=== PATIENT | male | born 1950 | race Caucasian/White ===

== ENCOUNTER → 2017-07-24 | Outpatient (CLI) | payer MEDICARE, OTHER ==
[2017-07-24 14:46] LABS: Basophils # (auto) 0.1 uL; Eosinophils # (auto) 0.7 uL; Eosinophils % (auto) 8.2 % (0.0-7.0); Hematocrit 42.7 % (41.0-53.0); Hemoglobin 14.2 g/dL (13.5-17.5); Lymphocytes # (auto) 1.9 uL; Lymphocytes % (auto) 22.9 % (10.0-50.0); Mean Corpuscular Hemoglobin 30.7 pg (28.0-32.0); Mean Corpuscular Hgb Conc. 33.3 g/dL (32.0-36.0); Mean Corpuscular Volume 92.3 fL (80.0-100.0); Monocytes # (auto) 0.5 uL; Monocytes % (auto) 5.6 % (0.0-12.0); Neutrophils # (auto) 5.1 uL; Neutrophils % (auto) 62.3 % (37.0-80.0); Platelet Count (auto) 209 10^3/uL (140-450); Red Blood Cells 4.63 10^6/uL (4.5-5.90); Red Cell Distribution Width 13.9 % (11.8-14.3); White Blood Cell 8.2 10^3/uL (4.4-10.8)
[2017-07-24 14:48] LABS: Urine Bacteria NONE SEEN /hpf (None Seen); Urine Blood Negative /uL (Negative); Urine Specific Gravity 1.018 (1.001-1.035); Urine WBC <1 /hpf (0 - 3)
[2017-07-24 15:01] LABS: INR 0.88 (0.9-1.15); Partial Thromboplastin Time 25.9 sec (22.64-33.71); Prothrombin Time 9.6 sec (9.37-12.3)
[2017-07-24 15:21] LABS: BUN/Creatinine Ratio 24.5; Bilirubin, Total 0.3 mg/dL (0.2-1.0); Calcium 9.6 mg/dL (8.5-10.1); Total Protein 7.8 g/dL (6.4-8.2)
== END | disposition home or self-care (01) ==
LOC: LAB 13:40
PROVIDERS: ATTEND Orthopaedic Surgery
DX: S83.102D Unspecified subluxation of left knee, subsequent encounter (principal); Z79.01 Long term (current) use of anticoagulants
CPT/HCPCS: 36415; 80053; 81001; 85025; 85610; 85730

== ENCOUNTER → 2018-11-11 | Outpatient (CLI) | payer MEDICARE, OTHER ==
[~2018-11-11] VITALS: Ht 182.9 cm; Wt 94.8 kg
[~2018-11-11] MED LIST: ADENOSINE 80 MG in GIVE UN-DILUTED 0 ML IV STA; APIX5TAB PO; COLE1TAB2 PO; DIGO0.2527 PO; LISI-646 PO; MET5XLT PO; PANT40T PO
[2018-11-11 10:05] VITALS: BP 136/78
== END | disposition home or self-care (01) ==
LOC: XYW 09:12
PROVIDERS: ATTEND Internal Medicine
DX: I10 Essential (primary) hypertension (principal); I49.8 Other specified cardiac arrhythmias; G43.909 Migraine, unspecified, not intractable, without status migrainosus; Z86.711 Personal history of pulmonary embolism; Z87.898 Personal history of other specified conditions
CPT/HCPCS: 78452; 93017; A9500; J0153

== ENCOUNTER → 2018-11-14 | Outpatient (CLI) | payer MEDICARE, OTHER ==
[~2018-11-14] MED LIST changes: -ADENOSINE 80 MG in GIVE UN-DILUTED 0 ML IV STA; +AMI200T PO; +BUTACAP35 PO; +DIGO0.2570 PO; +METO-169 PO
[2018-11-14 11:05] LABS: Albumin 3.8 g/dL (3.4-5.0); Calcium 8.8 mg/dL (8.5-10.1); Potassium 4.4 mmol/L (3.5-5.1)
[2018-11-14 11:08] LABS: BUN/Creatinine Ratio 15.5; Bilirubin, Total 0.3 mg/dL (0.2-1.0); Total Protein 7.6 g/dL (6.4-8.2)
[2018-11-14 11:09] LABS: Basophils # (auto) 0.1 uL; Basophils % (auto) 1.3 % (0.0-2.0); Eosinophils # (auto) 0.2 uL; Eosinophils % (auto) 3.3 % (0.0-7.0); Hematocrit 42.9 % (41.0-53.0); Hemoglobin 14.3 g/dL (13.5-17.5); Lymphocytes # (auto) 1.4 uL; Lymphocytes % (auto) 19.7 % (10.0-50.0); Mean Corpuscular Hemoglobin 30.8 pg (28.0-32.0); Mean Corpuscular Hgb Conc. 33.4 g/dL (32.0-36.0); Mean Corpuscular Volume 92.3 fL (80.0-100.0); Monocytes # (auto) 0.5 uL; Monocytes % (auto) 6.5 % (0.0-12.0); Neutrophils % (auto) 69.2 % (37.0-80.0); Nucleated Red Blood Cells % 0.1 %; Platelet Count (auto) 211 10^3/uL (140-450); Red Blood Cells 4.65 10^6/uL (4.5-5.90); Red Cell Distribution Width 15.1 % (11.8-14.3); White Blood Cell 7.2 10^3/uL (4.4-10.8)
[2018-11-14 11:39] LABS: INR 0.89 (0.9-1.15); Partial Thromboplastin Time 27.2 sec (23.64-32.05)
== END | disposition home or self-care (01) ==
LOC: LAB 10:19
PROVIDERS: ATTEND Internal Medicine
DX: Z01.812 Encounter for preprocedural laboratory examination (principal); R79.89 Other specified abnormal findings of blood chemistry; R79.1 Abnormal coagulation profile
CPT/HCPCS: 36415; 80053; 85025; 85610; 85730

== ENCOUNTER 2018-11-17 08:07 | Day surgery (SDC) | payer MEDICARE, OTHER ==
[~2018-11-17] VITALS: Ht 175.3 cm; Wt 95.7 kg
[~2018-11-17 08:07] MED LIST changes: -DIGO0.2527 PO; -MET5XLT PO
[2018-11-17] MEDS ORDERED: fentaNYL CITRATE 100 MCG/2 ML VL IV ONE (08:45)
[2018-11-17] MEDS ORDERED: LIDOCAINE VISCOUS 2% 15ML UD PO ONE (08:45)
[2018-11-17] MEDS ORDERED: MIDAZOLAM HCL 1MG/1ML-2 ML VIAL IV ONE (08:45)
[2018-11-17] MEDS ORDERED: ONDANSETRON HCL 4 MG/2 ML VIAL ONE (09:51)
--- NOTE | 2018-11-17 13:47 | NUR ---
critical lab for digoxin 2.1 called in to MD Leonardo.
== END 2018-11-17 11:40 | disposition home or self-care (01) ==
LOC: CATH 08:07
PROVIDERS: ATTEND Internal Medicine
DX: I48.91 Unspecified atrial fibrillation (principal); I10 Essential (primary) hypertension; G43.909 Migraine, unspecified, not intractable, without status migrainosus; J45.909 Unspecified asthma, uncomplicated; G47.33 Obstructive sleep apnea (adult) (pediatric); Z79.899 Other long term (current) drug therapy; Z88.0 Allergy status to penicillin; Z86.711 Personal history of pulmonary embolism; Z87.898 Personal history of other specified conditions; Z82.49 Family history of ischemic heart disease and other diseases of the circulatory system
CPT/HCPCS: 36415; 80162; 92960; 93005; 93312; J2250; J2405; J3010; J7030; 99152

== ENCOUNTER → 2019-07-07 | Outpatient (CLI) | payer MEDICARE, OTHER ==
[~2019-07-07] VITALS: Ht 175.3 cm; Wt 95.7 kg
[~2019-07-07] MED LIST changes: +ADENOSINE 80 MG in GIVE UN-DILUTED 0 ML IV STA; -AMI200T PO; +AMIO200T4 PO; +DIGO0.25 PO; -DIGO0.2570 PO
[2019-07-07 08:46] VITALS: BP 149/92
== END | disposition home or self-care (01) ==
LOC: XY 06:57
PROVIDERS: ATTEND Internal Medicine
DX: I10 Essential (primary) hypertension (principal); I48.91 Unspecified atrial fibrillation
CPT/HCPCS: 78452; 93017; A9500; J0153

== ENCOUNTER → 2019-07-10 | Outpatient (CLI) | payer MEDICARE, OTHER ==
[~2019-07-10] MED LIST changes: -ADENOSINE 80 MG in GIVE UN-DILUTED 0 ML IV STA
== END | disposition home or self-care (01) ==
LOC: XYW 10:28
PROVIDERS: ATTEND Internal Medicine
DX: I11.9 Hypertensive heart disease without heart failure (principal)
CPT/HCPCS: 93306

== ENCOUNTER → 2019-08-10 | Outpatient (CLI) | payer MEDICARE, OTHER ==
[2019-08-10 13:41] LABS: Basophils # (auto) 0.1 10 ^3/uL (0-0.2); Basophils % (auto) 1.4 % (0.0-2.0); Eosinophils # (auto) 0.5 10 ^3/uL (0-0.8); Eosinophils % (auto) 6.6 % (0.0-7.0); Hematocrit 41.2 % (41.0-53.0); Hemoglobin 13.6 g/dL (13.5-17.5); Lymphocytes # (auto) 2.4 10 ^3/uL (0.4-5.4); Lymphocytes % (auto) 32.2 % (10.0-50.0); Mean Corpuscular Hemoglobin 30.6 pg (28.0-32.0); Mean Corpuscular Hgb Conc. 32.9 g/dL (32.0-36.0); Mean Corpuscular Volume 92.9 fL (80.0-100.0); Monocytes # (auto) 0.6 10 ^3/uL (0-1.3); Monocytes % (auto) 8.2 % (0.0-12.0); Neutrophils # (auto) 3.8 10 ^3/uL (1.6-8.6); Neutrophils % (auto) 51.6 % (37.0-80.0); Platelet Count (auto) 187 10^3/uL (140-450); Red Blood Cells 4.44 10^6/uL (4.5-5.90); Red Cell Distribution Width 14.8 % (11.8-14.3); White Blood Cell 7.4 10^3/uL (4.4-10.8)
[2019-08-10 14:20] LABS: Albumin 3.7 g/dL (3.4-5.0); Potassium 4.2 mmol/L (3.5-5.1)
[2019-08-10 14:26] LABS: BUN/Creatinine Ratio 19.6; Bilirubin, Total 0.4 mg/dL (0.2-1.0); Total Protein 7.5 g/dL (6.4-8.2)
== END | disposition home or self-care (01) ==
LOC: LAB 13:21
PROVIDERS: ATTEND Internal Medicine
DX: I10 Essential (primary) hypertension (principal); Z87.898 Personal history of other specified conditions
CPT/HCPCS: 36415; 80053; 80061; 85025

== ENCOUNTER 2019-11-11 07:50 | Inpatient (IN) | payer MEDICARE, OTHER ==
[2019-11-09 11:06] LABS: Basophils # (auto) 0.1 10 ^3/uL (0-0.2); Basophils % (auto) 1.1 % (0.0-2.0); Eosinophils # (auto) 0.6 10 ^3/uL (0-0.8); Eosinophils % (auto) 7.6 % (0.0-7.0); Hematocrit 37.4 % (41.0-53.0); Hemoglobin 12.3 g/dL (13.5-17.5); Lymphocytes # (auto) 1.9 10 ^3/uL (0.4-5.4); Lymphocytes % (auto) 25.1 % (10.0-50.0); Mean Corpuscular Hemoglobin 30.1 pg (28.0-32.0); Mean Corpuscular Hgb Conc. 32.9 g/dL (32.0-36.0); Mean Corpuscular Volume 91.3 fL (80.0-100.0); Monocytes # (auto) 0.4 10 ^3/uL (0-1.3); Neutrophils # (auto) 4.5 10 ^3/uL (1.6-8.6); Neutrophils % (auto) 60.2 % (37.0-80.0); Platelet Count (auto) 202 10^3/uL (140-450); Red Blood Cells 4.09 10^6/uL (4.5-5.90); Red Cell Distribution Width 14.9 % (11.8-14.3); White Blood Cell 7.5 10^3/uL (4.4-10.8)
[2019-11-09 11:22] LABS: INR 0.97 (0.9-1.15); Partial Thromboplastin Time 26.2 sec (23.64-32.05)
[2019-11-09 11:33] LABS: Potassium 4.5 mmol/L (3.5-5.1)
[2019-11-09 11:39] LABS: Albumin 3.5 g/dL (3.4-5.0); BUN/Creatinine Ratio 13.8; Bilirubin, Total 0.4 mg/dL (0.2-1.0); Calcium 8.9 mg/dL (8.5-10.1); Total Protein 7.3 g/dL (6.4-8.2)
[~2019-11-11] VITALS: Ht 175.3 cm; Wt 89.5 kg
[~2019-11-11 07:50] MED LIST changes: -AMIO200T4 PO; -BUTACAP35 PO; -DIGO0.25 PO; +HYDR-531 PO; -LISI-646 PO; +LOSA-39 PO; +ROSU40TA PO; +[UNRECOGNIZED DRUG - CODE] PO
[2019-11-11] MEDS ORDERED: LIDOCAINE 2%HCL (LOCAL ANESTH.) INJ 20ML MDV ONE (08:10)
[2019-11-11] MEDS ORDERED: IODIXANOL 320MG/ML 100ML BTL IV ONE ×3 (08:11→10:25)
[2019-11-11] MEDS ORDERED: SODIUM CHL 0.9% 50 ML ONE ×3 (09:22→10:43)
[2019-11-11] MEDS ORDERED: fentaNYL CITRATE 100 MCG/2 ML VL ONE (09:22)
[2019-11-11] MEDS ORDERED: MIDAZOLAM HCL 1MG/1ML-2 ML VIAL ONE ×2 (09:22→10:44)
[2019-11-11] MEDS ORDERED: ANGIOMAX 250 MG VIAL IV ONE ×2 (09:22→10:39)
[2019-11-11] MEDS ORDERED: diphenhdrAMINE HCL 50 MG/1 ML VL ONE (09:41)
[2019-11-11] MEDS ORDERED: IOHEXOL 350 MG/ML 100ML IJ ONE ×2 (10:29→11:05)
[2019-11-11] MEDS ORDERED: PRASUGREL HCL 10 MG TAB ONE ×2 (11:25→11:35)
[2019-11-11] MEDS ORDERED: ASPirin 325 MG TAB ONE (11:25)
[2019-11-11] MEDS ORDERED: SODIUM CHLORIDE 0.9% 1,000 ML IV SCH (13:02)
[2019-11-11] MEDS ORDERED: NITROGLYCERIN 0.4 MG SL TAB SL PRN (13:15)
[2019-11-11] MEDS ORDERED: MORPHINE SULF INJ 2 MG/ML SYRINGE 1ML IV PRN (13:15)
[2019-11-11] MEDS ORDERED: ACETAMINOPHEN 500 MG TAB PO PRN (13:15)
[2019-11-11] MEDS ORDERED: ONDANSETRON HCL 4 MG/2 ML VIAL IV PRN (13:15)
[2019-11-11] MEDS ORDERED: ZOLPIDEM TARTRATE 5 MG TAB PO PRN (13:15)
[2019-11-11] MEDS ORDERED: HYDROcodone-ACET 5/325MG TAB PO PRN (13:15)
[2019-11-11] MEDS ORDERED: LORazepam 0.5 MG TAB PO PRN (13:15)
[2019-11-11 17:00] VITALS: BP 138/81
[2019-11-11 22:00] VITALS: BP 135/82
[2019-11-12 05:00] VITALS: BP 130/79
[2019-11-12 08:30] VITALS: BP 159/89
[2019-11-12] MEDS ORDERED: LOSARTAN POTASSIUM 50 MG TAB PO SCH (10:00)
[2019-11-12] MEDS ORDERED: METOPROLOL SUCCINATE XL 50 MG TAB PO SCH (10:00)
[2019-11-12] MEDS ORDERED: PRASUGREL HCL 10 MG TAB PO SCH (10:00)
[2019-11-12] MEDS ORDERED: COLESTIPOL HCL 1 GM PO SCH (10:00)
[2019-11-12] MEDS ORDERED: ATORVASTATIN 20 MG TAB PO SCH (10:00)
[2019-11-12] MEDS ORDERED: PANTOPRAZOLE 40 MG TAB PO SCH (10:00)
[2019-11-12] MEDS ORDERED: ASPIRIN CAFFEINE PO SCH (10:00)
[2019-11-12 14:00] VITALS: BP 136/86
[2019-11-12 14:31] VITALS: BP 136/86
== END 2019-11-12 15:05 | disposition home or self-care (01) | DRG 246 ==
LOC: CATH 07:50 → TELE-WESTW 15:23
PROVIDERS: ADMIT Internal Medicine; ATTEND Internal Medicine
PROC: 027236Z Dilation of Coronary Artery, Three Arteries with Three Drug-eluting Intraluminal Devices, Percutaneous Approach (ICD-10-PCS; principal; 2019-11-11)
PROC: 4A023N8 Measurement of Cardiac Sampling and Pressure, Bilateral, Percutaneous Approach (ICD-10-PCS; 2019-11-11)
PROC: B211YZZ Fluoroscopy of Multiple Coronary Arteries using Other Contrast (ICD-10-PCS; 2019-11-11)
PROC: B215YZZ Fluoroscopy of Left Heart using Other Contrast (ICD-10-PCS; 2019-11-11)
PROC: B241ZZ3 Ultrasonography of Multiple Coronary Arteries, Intravascular (ICD-10-PCS; 2019-11-11)
DX: I25.10 Atherosclerotic heart disease of native coronary artery without angina pectoris (principal); I25.42 Coronary artery dissection; I10 Essential (primary) hypertension; E78.5 Hyperlipidemia, unspecified; I48.91 Unspecified atrial fibrillation; J45.909 Unspecified asthma, uncomplicated; Z86.711 Personal history of pulmonary embolism; Z88.1 Allergy status to other antibiotic agents; Z88.0 Allergy status to penicillin; Z11.59 Encounter for screening for other viral diseases
CPT/HCPCS: 36415; 80053; 82565; 85025; 85610; 85730; 92928; 92978; 92979; 93460; 99152; 99153; C1751; C1874; C1887; G0378; J2250; Q9967

== ENCOUNTER → 2020-04-21 | Outpatient (CLI) | payer MEDICARE, BC ==
[~2020-04-21] VITALS: Ht 175.3 cm; Wt 93.9 kg
[~2020-04-21] MED LIST changes: +ADENOSINE 79 MG in GIVE UN-DILUTED 0 ML IV STA
== END | disposition home or self-care (01) ==
LOC: XY 07:44
PROVIDERS: ATTEND Internal Medicine
DX: I25.10 Atherosclerotic heart disease of native coronary artery without angina pectoris (principal); R06.02 Shortness of breath; M17.10 Unilateral primary osteoarthritis, unspecified knee; Z95.9 Presence of cardiac and vascular implant and graft, unspecified
CPT/HCPCS: 78452; 93017; A9500; J0153

== ENCOUNTER 2024-07-03 14:58 | Inpatient (IN) | payer MEDICARE, BC ==
[~2024-07-03] VITALS: Ht 175.3 cm; Wt 103.7 kg
[2024-07-03] MEDS: POTASSIUM CHL 20MEQ/100ML 100 ML IV SCH (03:30)
[~2024-07-03 14:58] MED LIST changes: -ADENOSINE 79 MG in GIVE UN-DILUTED 0 ML IV STA; -LOSA-39 PO; +LOSA-535 PO; -METO-169 PO; +METO-289 PO; -ROSU40TA PO; +ROSU40TA81 PO; +[UNRECOGNIZED DRUG - CODE] PO; -[UNRECOGNIZED DRUG - CODE] PO
[2024-07-03 15:55] LABS: Urine Bacteria None Seen /hpf (None Seen)
[2024-07-03 16:08] LABS: Urine Blood Negative /uL (Negative); Urine Clarity Clear (Clear); Urine Color Dark-Yellow (Yellow); Urine Protein, UAD Negative (Negative); Urine Specific Gravity 1.011 (1.001-1.035); Urine Squamous Epithelial Cell FEW /hpf (<5); Urine Urobilinogen 3 mg/dL (Negative); Urine WBC 2 /HPF (0-3); Urine pH 5.5 (5.0-9.0)
[2024-07-03 16:34] LABS: Basophils # (auto) 0.1 10 ^3/uL (0-0.2); Basophils % (auto) 0.8 % (0.0-2.0); Eosinophils # (auto) 0.5 10 ^3/uL (0-0.8); Hematocrit 38.7 % (41.0-53.0); Lymphocytes # (auto) 1.1 10 ^3/uL (0.4-5.4); Lymphocytes % (auto) 11.4 % (10.0-50.0); Mean Corpuscular Hgb Conc. 33.8 g/dL (32.0-36.0); Mean Corpuscular Volume 85.8 fL (80.0-100.0); Monocytes # (auto) 0.9 10 ^3/uL (0-1.3); Monocytes % (auto) 9.2 % (0.0-12.0); Neutrophils # (auto) 7.1 10 ^3/uL (1.6-8.6); Neutrophils % (auto) 73.6 % (37.0-80.0); Nucleated Red Blood Cells % 0.1 %; Platelet Count (auto) 299 10^3/uL (140-450); Red Blood Cells 4.51 10^6/uL (4.5-5.90); Red Cell Distribution Width 14.1 % (11.8-14.3); White Blood Cell 9.6 10^3/uL (4.4-10.8)
--- NOTE | 2024-07-03 16:40 | DVH ---
CT ABDOMEN AND PELVIS WITHOUT CONTRAST CLINICAL HISTORY: pain TECHNIQUE: Multiple contiguous axial images of the abdomen and pelvis without intravenous contrast. The images were reformatted degenerate coronal and sagittal reconstructions. All CT scans at this medical facility are performed using dose modulation techniques as appropriate t o a performed exam including the following:Automated exposure control was utilized; adjustment of the MA and/or KV according to patient size; and use of iterative reconstruction technique. Radiation Dose Information: CT Dose: CTDI volume is 8 mGy. Dose-length product is 355 mGy*cm Comparison: None FINDINGS: Evaluation of the abdomen and pelvis is limited without intravenous contrast. The gallbladder is surgically absent. The liver, pancreas, kidneys, adrenal glands, and spleen karina ear within normal limits. There is no gross evidence of abdominal lymphadenopathy. There is no free fluid or free air. The stomach grossly appears unremarkable. The small and large bowel loops demonstrate normal caliber . There is mild fat stranding surrounding the appendix suggesting acute appendicitis. There is no pe riappendiceal fluid collection or free air. The abdominal aorta and IVC appear within normal limits. The bladder appears unremarkable for the degree of distention. The prostate gland is prominent in siz e.. There is no gross evidence of a pelvic mass. There is no free fluid collection. There are small bilateral fat containing inguinal hernias. Lung bases are clear. There is no acute osseous abnormality. IMPRESSION: 1. There is mild fat stranding surrounding the appendix suggestive of acute appendicitis. There is no periappendiceal fluid collection or free air. 2. Prostatomegaly. The results were discussed with the clinical service in the emergency room at [facility] Vernell Singh on 07/03/2024, 4:38 p.m.. HS:Y
[2024-07-03 16:41] LABS: Sodium 138 mmol/L (136-145)
[2024-07-03 16:42] LABS: Anion Gap 7 (5-15)
[2024-07-03] MEDS ORDERED: PIPERACILLIN-TAZOB 3.375GM 100 ML IV ONE (16:45)
[2024-07-03 16:47] LABS: BUN/Creatinine Ratio 20.1 (10.0-20.0); Glucose 96 mg/dL (74-106)
[2024-07-03 16:49] VITALS: PULSE 79; RESP 18; O2SAT 99
[2024-07-03] MEDS: SODIUM CHLORIDE 0.9% 1,000 ML IV ONE (16:49)
[2024-07-03 17:17] LABS: Blood Urea Nitrogen 27 mg/dL (9-23); Carbon Dioxide 34 mmol/L (20-31); Chloride 97 mmol/L (98-107); Potassium 2.9 mmol/L (3.5-5.1)
[2024-07-03 17:19] LABS: Calcium 15.2 mg/dL (8.7-10.4)
[2024-07-03] MEDS: VANCOMYCIN 1GM/250ML KIT 250 ML IV ONE (17:30)
[2024-07-03 17:31] LABS: INR 1.01 (0.9-1.15); Partial Thromboplastin Time 24.3 SEC (24.5-34.5); Prothrombin Time 10.7 sec (9.3-11.8)
[2024-07-03] MEDS: metroNIDAZOLE 500MG/100ML 100 ML IV ONE (17:38)
--- NOTE | 2024-07-03 17:42 | ED.PDOC ---
GI ASSESSMENT HPI Comments 73-year-old male who comes in with chief complaint of abdominal pain with possible UTI. The patient has had a low-grade fever according to his family. The patient has been more lethargic. The patient's pain is in the left lower quadrant and seems to radiate towards his back. The pain has been increasing somewhat over the past two weeks but the odiferous urine has been going on for two days. The patient's blood pressure was also significantly elevated. Chief Complaint: Urinary Time Seen by MD: 15:16 Primary Care Provider: unknown Reviewed Notes: Nurses Notes, Siebel Administrator Notes, Medications, Allergies (Allergies listed above) Allergies: Coded Allergies: Cephalexin (Verified Allergy, Unknown, RASH, 11/14/18) Penicillins (Verified Allergy, Unknown, RASH, 11/14/18) Home Meds Active Scripts Apixaban Base (ELIQUIS) 5 Mg Tab, 5 MG PO BID for 30 Days, #60 TAB Prov:DWAIN LAURENT MD 09/29/18 Reported Medications Aspirin-Caffeine (Anacin 400-32 mg) 1 Tab Tab, 1 TAB PO DAILY, TAB 11/09/19 Hydrocodone-Acetaminophen ([place] 10-325 mg) 1 Tab Tab, 1 TAB PO BID, TAB 11/09/19 Rosuvastatin Calcium (Crestor) 40 Mg Tab, 1 TAB PO DAILY, #30 TAB 5 Refills 11/09/19 Losartan Potassium (Losartan Potassium) 100 Mg Tab, 100 MG PO DAILY for 30 Days, MG 11/09/19 Pantoprazole Sodium Sesquihydr (Pantoprazole Sodium) 40 Mg Tab, 40 MG PO DAILY, TAB 11/14/18 Metoprolol Succinate (Metoprolol Succinate Er) 50 Mg Tab, 50 MG PO DAILY for 30 Days, MG 11/14/18 Colestipol Hcl (Colestipol Hcl) 1 Gm Tab, 1 GM PO DAILYP, TAB 09/23/18 Information Source: Patient, Emergency Med Personnel Mode of Arrival: EMS Timing: Days Duration: Since onset Prehospital treatment: None Quality: Aching, Cramping Vomitus: None Stool: Normal Severity: Moderate Recent: None Recent Hx of: None Pain Location: LLQ Modifying Factors: Nothing Associated sign and symptoms: Nausea, Abdominal Pain, Other (Dysuria) Past Medical History PAST MEDICAL HISTORY: HTN, [place] Past Medical History (Other): Parkinson's, chronic ulcerative colitis Surgical History: Cholecystectomy, PTCA, Tonsillectomy Surgical History (Other): Left knee surgery Family History Family History: No family hx of DM Social History Smoker: Non-Smoker Alcohol: Denies ETOH Use Drugs: Denies Drug Use Lives In: Home Constitutional: denies: chills, diaphoresis, fatigue, fever, malaise, sweats, weakness, others Physical Exam General Appearance: Moderate Distress HEENT: Normal ENT Inspection, Pharynx Normal, TMs Normal Neck: Full Range of Motion, Non-Tender, Normal, Normal Inspection Respiratory: Chest Non-Tender, Lungs Clear, No Accessory Muscle Use, No Respiratory Distress, Normal Breath Sounds Cardiovascular: No Edema, No JVD, No Murmur, No Gallop, Normal Peripheral Pulses, Regular Rate/Rhythm Breast Exam: Deferred Gastrointestinal: LLQ, No Organomegaly, No Pulsatile Mass, Normal Bowel Sounds, RLQ, Soft, Tenderness Genitalia: Deferred Pelvic: Deferred Rectal: Deferred Extremities: No calf tenderness, Normal capillary refill, No pedal edema Musculoskeletal : Apperance: Normal 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 Was a procedure done?: No GI differential Dx Differential Diagnosis: Gastritis/PUD, Gastroenteritis, Inflammatory BD, Pancreatitis, UTI, Electrolyte Imbalance, Food Poisoning X-Ray, Labs, Meds, VS Vital Signs Date Time Temp Pulse Resp B/P (MAP) Pulse Ox O2 Delivery O2 Flow Rate FiO2 07/03/24 16:49 79 18 99 Room Air* 0 21 07/03/24 16:47 98.7 79 17 166/87 (113) 97 98.7 07/03/24 16:47 79 17 97 07/03/24 15:08 97.3 78 18 182/90 (120) 97 Lab Test 07/03/24 16:08 07/03/24 15:28 Range/Units White Blood Count 9.6 4.4-10.8 10^3/uL Red Blood Count 4.51 4.5-5.90 10^6/uL Hemoglobin 13.0 L 13.5-17.5 g/dL Hematocrit 38.7 L 41.0-53.0 % Mean Corpuscular Volume 85.8 80.0-100.0 fL Mean Corpuscular Hemoglobin 29.0 28.0-32.0 pg Mean Corpuscular Hemoglobin Concent 33.8 32.0-36.0 g/dL Red Cell Distribution Width 14.1 11.8-14.3 % Platelet Count 299 140-450 10^3/uL Mean Platelet Volume 7.4 6.9-10.8 fL Neutrophils (%) (Auto) 73.6 37.0-80.0 % Lymphocytes (%) (Auto) 11.4 10.0-50.0 % Monocytes (%) (Auto) 9.2 0.0-12.0 % Eosinophils (%) (Auto) 5.0 0.0-7.0 % Basophils (%) (Auto) 0.8 0.0-2.0 % Neutrophils # (Auto) 7.1 1.6-8.6 10 ^3/uL Lymphocytes # (Auto) 1.1 0.4-5.4 10 ^3/uL Monocytes # (Auto) 0.9 0-1.3 10 ^3/uL Eosinophils # (Auto) 0.5 0-0.8 10 ^3/uL Basophils # (Auto) 0.1 0-0.2 10 ^3/uL Nucleated Red Blood Cells 0.1 % Prothrombin Time 10.7 9.3-11.8 sec Prothrombin Time INR 1.01 0.9-1.15 Activated Partial Thromboplast Time 24.3 L 24.5-34.5 SEC Sodium Level 138 136-145 mmol/L Potassium Level 2.9 L 3.5-5.1 mmol/L Chloride Level 97 L 98-107 mmol/L Carbon Dioxide Level 34 H 20-31 mmol/L Anion Gap 7 5-15 Blood Urea Nitrogen 27 H 9-23 mg/dL Creatinine 1.34 H 0.700-1.30 mg/dL Glomerular Filtration Rate Calc 56 >90 mL/min BUN/Creatinine Ratio 20.1 H 10.0-20.0 Serum Glucose 96 74-106 mg/dL Lactic Acid Level 1.7 0.4-2.0 mmol/L Calcium Level 15.2 *H 8.7-10.4 mg/dL Urine Color Dark-yellow Yellow Urine Clarity Clear Clear Urine pH 5.5 5.0-9.0 Urine Specific [place] 1.011 1.001-1.035 Urine Protein Negative Negative Urine Ketones Negative Negative Urine Blood Negative Negative /uL Urine Nitrite 1+ H Negative Urine Bilirubin 1+ Negative Urine Urobilinogen 3 H Negative mg/dL Urine Leukocyte Esterase Negative Negative /uL Urine RBC 4 0 - 3 /hpf Urine Microscopic WBC 2 0-3 /HPF Urine Squamous Epithelial Cells Few <5 /hpf Urine Bacteria None seen None Seen /hpf Urine Glucose Normal Normal mg/dL Current Medications Medications (Trade) Dose Ordered Sig/Gt Route Start Time Stop Time Status Last Admin Sodium Chloride 1,000 ml @ 1,000 mls/hr Q1H ONCE IV 07/03/24 15:30 07/03/24 16:29 DC 07/03/24 16:49 Metronidazole 100 ml @ 100 mls/hr ONCE ONCE IV 07/03/24 17:30 07/03/24 18:29 DC 07/03/24 17:38 Vancomycin HCl 250 ml @ 250 mls/hr ONCE ONCE IV 07/03/24 17:30 07/03/24 18:29 DC 07/03/24 17:30 IV Hep-Lock was established The patient was given a 1 L bolus of normal saline. The patient was given Flagyl 500 mg IV piggyback The patient was hypercalcemic at 15.2 The patient's urine test is negative for infection at this time The patient's CBC is within normal limits We did get a CT scan of the abdomen and pelvis on this patient and there are some inflammatory changes in the area around the appendix. This is consistent with acute appendicitis. We contacted the surgeon on-call and the patient will be admitted at this time. The patient was being started on Flagyl IV piggyback We discussed the findings with the patient and they are in agreement with the management Images Reviewed?: Images reviewed and evaluated by me Time of 1ST Reevaluation: 17:48 Reevaluation 1ST: Unchanged Patient Education/Counseling: Diagnosis, Treatment, Prognosis Family Education/Counseling: No Family Present Departure 1 Departure Time of Disposition: 18:49 Impression: Primary Impression: Intractable abdominal pain Additional Impression: Acute appendicitis Qualified Codes: K35.80 - Unspecified acute appendicitis Disposition: ADMITTED INPATIENT Admit to: Med Surg Condition: Fair Critical Care Note Critical Care Time?: No Stability Stability form required: Yes Unstable for transfer: ED Physician Assesment (Clinical assesment) Heart Score Heart Score: Heart Score Response (Comments) Value History N/A 0 EKG N/A 0 Age N/A 0 Risk Factors N/A 0 Troponin N/A 0 Total 0 TYRESE OSORIO MD Jul 03, 2024 17:42
--- NOTE | 2024-07-03 18:42 | DVHINCON2 ---
Date of service: Jul 03, 2024 History of Present Illness 73-year-old male with a history of ulcerative colitis complaining of two week history of bilateral lower quadrant abdominal pain radiating to his back. Also complaining of some burning urination. Denies any fevers, chills, nausea or vomiting. Past Medical History Ulcerative colitis. Coronary artery disease status post stent. Parkinson's disease. Past Surgical History Knee surgery. Cholecystectomy. Family History: Alcoholism Atrial fibrillation G8 SISTER Cardiovascular disease G8 FATHER Diabetes mellitus G8 MOTHER G8 FATHER Family History Noncontributory. Social History Denies tobacco. Rare alcohol. No IV drug use. Allergies: Coded Allergies: Cephalexin (Verified Allergy, Unknown, RASH, 11/14/18) Penicillins (Verified Allergy, Unknown, RASH, 11/14/18) Home Meds Active Scripts Apixaban Base (ELIQUIS) 5 Mg Tab, 5 MG PO BID for 30 Days, #60 TAB Prov:DWAIN LAURENT MD 09/29/18 Reported Medications Aspirin-Caffeine (Anacin 400-32 mg) 1 Tab Tab, 1 TAB PO DAILY, TAB 11/09/19 Hydrocodone-Acetaminophen ([place] 10-325 mg) 1 Tab Tab, 1 TAB PO BID, TAB 11/09/19 Rosuvastatin Calcium (Crestor) 40 Mg Tab, 1 TAB PO DAILY, #30 TAB 5 Refills 11/09/19 Losartan Potassium (Losartan Potassium) 100 Mg Tab, 100 MG PO DAILY for 30 Days, MG 11/09/19 Pantoprazole Sodium Sesquihydr (Pantoprazole Sodium) 40 Mg Tab, 40 MG PO DAILY, TAB 11/14/18 Metoprolol Succinate (Metoprolol Succinate Er) 50 Mg Tab, 50 MG PO DAILY for 30 Days, MG 11/14/18 Colestipol Hcl (Colestipol Hcl) 1 Gm Tab, 1 GM PO DAILYP, TAB 09/23/18 Vital Signs Vital Signs Date Time Temp Pulse Resp B/P (MAP) Pulse Ox O2 Delivery O2 Flow Rate FiO2 07/03/24 16:49 79 18 99 Room Air* 0 21 07/03/24 16:47 98.7 166/87 (113) 98.7 Physical Exam GEN: Age-appropriate male in no acute distress. Alert and oriented x2 to person and place. HEENT: Normocephalic atraumatic. Moist mucous membranes. Anicteric sclerae. CV: RRR Respiratory: CTAB ABD: Soft. Very minimal bilateral lower quadrant tenderness to palpation without guarding or rebound. Nondistended. CT of the abdomen and pelvis: Mild fat stranding surrounding the appendix suggesting acute appendicitis. No free fluid or free air. Labs/Diagnostic Data Labs Test 07/03/24 16:08 07/03/24 15:28 Range/Units White Blood Count 9.6 4.4-10.8 10^3/uL Red Blood Count 4.51 4.5-5.90 10^6/uL Hemoglobin 13.0 L 13.5-17.5 g/dL Hematocrit 38.7 L 41.0-53.0 % Mean Corpuscular Volume 85.8 80.0-100.0 fL Mean Corpuscular Hemoglobin 29.0 28.0-32.0 pg Mean Corpuscular Hemoglobin Concent 33.8 32.0-36.0 g/dL Red Cell Distribution Width 14.1 11.8-14.3 % Platelet Count 299 140-450 10^3/uL Mean Platelet Volume 7.4 6.9-10.8 fL Neutrophils (%) (Auto) 73.6 37.0-80.0 % Lymphocytes (%) (Auto) 11.4 10.0-50.0 % Monocytes (%) (Auto) 9.2 0.0-12.0 % Eosinophils (%) (Auto) 5.0 0.0-7.0 % Basophils (%) (Auto) 0.8 0.0-2.0 % Neutrophils # (Auto) 7.1 1.6-8.6 10 ^3/uL Lymphocytes # (Auto) 1.1 0.4-5.4 10 ^3/uL Monocytes # (Auto) 0.9 0-1.3 10 ^3/uL Eosinophils # (Auto) 0.5 0-0.8 10 ^3/uL Basophils # (Auto) 0.1 0-0.2 10 ^3/uL Nucleated Red Blood Cells 0.1 % Prothrombin Time 10.7 9.3-11.8 sec Prothrombin Time INR 1.01 0.9-1.15 Activated Partial Thromboplast Time 24.3 L 24.5-34.5 SEC Sodium Level 138 136-145 mmol/L Potassium Level 2.9 L 3.5-5.1 mmol/L Chloride Level 97 L 98-107 mmol/L Carbon Dioxide Level 34 H 20-31 mmol/L Anion Gap 7 5-15 Blood Urea Nitrogen 27 H 9-23 mg/dL Creatinine 1.34 H 0.700-1.30 mg/dL Glomerular Filtration Rate Calc 56 >90 mL/min BUN/Creatinine Ratio 20.1 H 10.0-20.0 Serum Glucose 96 74-106 mg/dL Lactic Acid Level 1.7 0.4-2.0 mmol/L Calcium Level 15.2 *H 8.7-10.4 mg/dL Urine Color Dark-yellow Yellow Urine Clarity Clear Clear Urine pH 5.5 5.0-9.0 Urine Specific [place] 1.011 1.001-1.035 Urine Protein Negative Negative Urine Ketones Negative Negative Urine Blood Negative Negative /uL Urine Nitrite 1+ H Negative Urine Bilirubin 1+ Negative Urine Urobilinogen 3 H Negative mg/dL Urine Leukocyte Esterase Negative Negative /uL Urine RBC 4 0 - 3 /hpf Urine Microscopic WBC 2 0-3 /HPF Urine Squamous Epithelial Cells Few <5 /hpf Urine Bacteria None seen None Seen /hpf Urine Glucose Normal Normal mg/dL Assessment 1. Abdominal pain possibly from ulcerative colitis versus appendicitis although this seems less likely. Plan/Recommendation 1. Continue IV antibiotics. 2. We will reassess tomorrow. Plan discussed with: Patient MANJU PARKER MD Jul 03, 2024 18:42
--- NOTE | 2024-07-03 21:50 | DVHHPRES ---
History of Present Illness Resident Creating Document: RENEA GOMEZ RESIDENT History of Present Illness 73-year-old male with past medical history of atrial fibrillation s/p ablation in 2019, CAD s/p PTCA x3 with stenting of left main, lad and circumflex, ulcerative colitis diagnosed in September 2023, bilateral pulmonary embolisms, P arkinson disease, systolic heart failure, asthma, hypertension, who came in due to abdominal pain that has been ongoing for the past 2 weeks. Per patient's , he has also been experiencing dysuria for the past 2 days along with some confusion and delusions/hallucinations. They called patient's PCP who prescribed Levaquin, patient took 1 dose of Levaquin yesterday on 07/01/2024. However, due to continued dysuria, confusion and worsening generalized weakness with inability to walk is what prompted this visit to the hospital. On review of systems patient is complaining of fatigue, low-grade fever, chills, cough, loss of appetite, palpitations, vomiting, urinary frequency and dysuria. UA showed 1+ nitrite. Patient was AO x2 at the time of my assessment. Patient was noted to have hypercalcemia of 15.2 with repeat measurement of serum calcium 13.9, PTH 4.8 and vitamin-D 121.4. Past Medical History atrial fibrillation s/p ablation in 2019, CAD s/p PTCA x3 with stenting of left main, lad and circumflex, ulcerative colitis diagnosed in September 2023, bilateral pulmonary embolisms, Parkinson disease, systolic heart failure, asthma, hypertension Past Surgical History Cholecystectomy, left knee replacement Past Social History Smoking: Denies Alcohol: Remote history of binge alcohol drinking, quit 10 years ago. Drugs: Denies, however, occasionally uses THC/CBD gummies Review of Systems Constitutional: Yes: Fever, Chills, Weakness, Malaise; No: Sweats, Other Eyes: No: Pain, Vision change, Conjunctivae inflammation, Eyelid inflammation, Other, Redness ENT: Nose congestion, Throat pain; No: Ear pain, Ear discharge, Nose pain, Nose discharge, Mouth pain, Mouth swelling, Throat swelling, Other Respiratory: Cough; No: Dry, Shortness of breath, SOB with excertion, Wheezing, Hemoptysis, Pleuritic Pain, Sputum, Wheezing, Other Cardiovascular: Palpitations; No: Chest Pain, Orthopnea, Paroxysmal Noc. Dyspnea, Edema, Lt Headedness, Other Gastrointestinal: Nausea, Vomiting, Abdominal Pain; No: Diarrhea, Constipation, Melena, Hematochezia, Other Genitourinary: Dysuria, Frequency; No Incontinence, No Hematuria, No Retention, No Other Musculoskeletal: No: other, neck pain, shoulder pain, arm pain, back pain, hand pain, leg pain, foot pain Skin: No: Rash, Lesions, Jaundice, Bruising, Other Neurological: Confusion; No: Weakness, Numbness, Incoordination, Change in speech, Seizures, Other Allergies: Coded Allergies: Cephalexin (Verified Allergy, Unknown, RASH, 11/14/18) Penicillins (Verified Allergy, Unknown, RASH, 11/14/18) Medications Current Medications Medications Dose Ordered Sig/Gt Route Start Time Stop Time Status Last Admin Dose Admin Metronidazole 100 ml @ 100 mls/hr Q8HR IV 07/03/24 22:00 Levofloxacin 500 mg DAILY PO 07/04/24 10:00 Exam Vital Signs Vital Signs Date Time Temp Pulse Resp B/P (MAP) Pulse Ox O2 Delivery O2 Flow Rate FiO2 07/03/24 21:18 97.5 81 181/90 (120) 95 97.5 07/03/24 16:49 18 Room Air* 0 21 General Appearance: Alert, Cooperative, No acute distress HEENT: Atraumatic, PERRLA, EOMI, Mucous membr. moist/pink Respiratory: Clear to auscultation, Normal air movement Cardiovascular: Regular rate, Normal S1, Normal S2 Abdominal: Normal bowel sounds, Soft, Other (Bilateral flank pain, tenderness to palpation) Extremities: No clubbing, Other (Trace lower extremity edema) Skin: No significant lesion Neuro: Normal speech, Other (Bilateral upper extremity resting pill-rolling tremors noted) Psych/Mental Status: Mental status NL, Mood NL Labs/Xrays Labs Test 07/03/24 16:08 07/03/24 15:28 Range/Units White Blood Count 9.6 4.4-10.8 10^3/uL Red Blood Count 4.51 4.5-5.90 10^6/uL Hemoglobin 13.0 L 13.5-17.5 g/dL Hematocrit 38.7 L 41.0-53.0 % Mean Corpuscular Volume 85.8 80.0-100.0 fL Mean Corpuscular Hemoglobin 29.0 28.0-32.0 pg Mean Corpuscular Hemoglobin Concent 33.8 32.0-36.0 g/dL Red Cell Distribution Width 14.1 11.8-14.3 % Platelet Count 299 140-450 10^3/uL Mean Platelet Volume 7.4 6.9-10.8 fL Neutrophils (%) (Auto) 73.6 37.0-80.0 % Lymphocytes (%) (Auto) 11.4 10.0-50.0 % Monocytes (%) (Auto) 9.2 0.0-12.0 % Eosinophils (%) (Auto) 5.0 0.0-7.0 % Basophils (%) (Auto) 0.8 0.0-2.0 % Neutrophils # (Auto) 7.1 1.6-8.6 10 ^3/uL Lymphocytes # (Auto) 1.1 0.4-5.4 10 ^3/uL Monocytes # (Auto) 0.9 0-1.3 10 ^3/uL Eosinophils # (Auto) 0.5 0-0.8 10 ^3/uL Basophils # (Auto) 0.1 0-0.2 10 ^3/uL Nucleated Red Blood Cells 0.1 % Prothrombin Time 10.7 9.3-11.8 sec Prothrombin Time INR 1.01 0.9-1.15 Activated Partial Thromboplast Time 24.3 L 24.5-34.5 SEC Sodium Level 138 136-145 mmol/L Potassium Level 2.9 L 3.5-5.1 mmol/L Chloride Level 97 L 98-107 mmol/L Carbon Dioxide Level 34 H 20-31 mmol/L Anion Gap 7 5-15 Blood Urea Nitrogen 27 H 9-23 mg/dL Creatinine 1.34 H 0.700-1.30 mg/dL Glomerular Filtration Rate Calc 56 >90 mL/min BUN/Creatinine Ratio 20.1 H 10.0-20.0 Serum Glucose 96 74-106 mg/dL Lactic Acid Level 1.7 0.4-2.0 mmol/L Calcium Level 15.2 *H 8.7-10.4 mg/dL Urine Color Dark-yellow Yellow Urine Clarity Clear Clear Urine pH 5.5 5.0-9.0 Urine Specific [place] 1.011 1.001-1.035 Urine Protein Negative Negative Urine Ketones Negative Negative Urine Blood Negative Negative /uL Urine Nitrite 1+ H Negative Urine Bilirubin 1+ Negative Urine Urobilinogen 3 H Negative mg/dL Urine Leukocyte Esterase Negative Negative /uL Urine RBC 4 0 - 3 /hpf Urine Microscopic WBC 2 0-3 /HPF Urine Squamous Epithelial Cells Few <5 /hpf Urine Bacteria None seen None Seen /hpf Urine Glucose Normal Normal mg/dL Assessment/Plan Assessment/Plan Subacute/chronic hypercalcemia with minimal symptoms likely due to hype rvitaminosis D vs malignancy vs granulomatous disease? - IV NS 1 L followed by IV NS at 100 cc/hour - serum calcium 15.2 --> 13.9 - PTH 4.8, vitamin-D 121.4 - CXR: Clear lungs - ordered CT chest abdomen pelvis with IV contrast - ordered PSA - EKG q.4 hours Possible acute appendicitis History of ulcerative colitis, currently not on any treatment - CT abdomen pelvis: Mild fat stranding surrounding the appendix suggestive of acute appendicitis, there is no periappendiceal fluid collection or free air. Prostatomegaly. - IV metronidazole, levofloxacin p.o. - surgery consult appreciated - patient NPO Coronary artery disease s/p PTCA x3 Possible history of systolic heart failure? Hypertension - resumed home medication ticagrelor 90 mg p.o. daily - resumed home medication losartan 100 mg p.o. daily - resumed home medication metoprolol 50 mg - echo from 2019: Left atrial enlargement. EF 60%. - BNP 35.27 - ordered repeat echocardiogram Hypokalemia - IV potassium 60 mEq - IV magnesium 3 g IDALIA likely hemodynamically mediated on questionable CKD - IV NS 1 L bolus - IV NS maintenance at 100 cc/hour History of Parkinson's disease - resumed home medication amantadine 100 mg p.o. daily PUD prophylaxis: protonix 40mg Goals of care: Full code, discussed for >16 minutes on 07/03/2024 Plan discussed with patient Plan discussed with Dr. Salmeron Plan discussed with: Patient, Spouse, Other (RN) Date of Service: Jul 03, 2024 Billing Provider: KELSEY SALMERON MD Common Visit Codes: 72511-[id number] INP/OBS CARE (HIGH) Secondary Visit Codes: 34328-[id number] CARE PLAN 30 MINUTES RENEA GOMEZ Jul 03, 2024 21:50 KELSEY SALMERON MD Jul 05, 2024 00:24
[2024-07-03] MEDS: SODIUM CHLORIDE 0.9% 1,000 ML IV SCH (22:15)
[2024-07-03] MEDS: METOPROLOL SUCCINATE XL 50 MG TAB PO SCH (22:16)
[2024-07-03] MEDS: metroNIDAZOLE 500MG/100ML 100 ML IV SCH (22:16)
[2024-07-03] MEDS: hydrALAZINE HCL 20 MG/ML VL IV ONE (22:29)
[2024-07-03 22:38] LABS: Chloride 101 mmol/L (98-107); Sodium 140 mmol/L (136-145)
[2024-07-03 22:39] LABS: Anion Gap 7 (5-15)
--- NOTE | 2024-07-03 22:41 | DVH ---
CHEST RADIOGRAPH Indication: cough Technique: Single frontal view of the chest was obtained Comparison: None FINDINGS: Lines and Tubes: None Lungs: Clear Pleura: No effusion. No pneumothorax. Cardiomediastinal contours: Unremarkable Bones: Unremarkable IMPRESSION: Clear lungs.
[2024-07-03 22:44] LABS: Glucose 95 mg/dL (74-106)
[2024-07-03 22:45] LABS: BUN/Creatinine Ratio 23.1 (10.0-20.0); Magnesium 1.9 mg/dL (1.6-2.6)
[2024-07-03 23:06] LABS: Blood Urea Nitrogen 28 mg/dL (9-23); Carbon Dioxide 32 mmol/L (20-31); Potassium 2.9 mmol/L (3.5-5.1)
[2024-07-03 23:12] LABS: Calcium 13.9 mg/dL (8.7-10.4)
[2024-07-04] VITALS (8 sets, daily range): BP systolic 152–189; BP diastolic 82–98; PULSE 61–77; RESP 18–20; TEMP 97.3–98.7; O2SAT 94–97
[2024-07-04] MEDS ORDERED: DOCU-96 PO (02:18)
[2024-07-04] MEDS ORDERED: TICA90TA PO (02:18)
[2024-07-04] MEDS ORDERED: [UNRECOGNIZED DRUG - CODE] PO (02:18)
[2024-07-04] MEDS: MAGNESIUM SULFATE 1GM/100ML 100 ML IV SCH ×2 (03:30→05:56)
[2024-07-04] MEDS: LOSARTAN POTASSIUM 50 MG TAB PO SCH (05:38)
[2024-07-04 06:04] LABS: Basophils # (auto) 0.1 10 ^3/uL (0-0.2); Basophils % (auto) 1.1 % (0.0-2.0); Eosinophils # (auto) 0.5 10 ^3/uL (0-0.8); Eosinophils % (auto) 6.2 % (0.0-7.0); Hematocrit 33.3 % (41.0-53.0); Hemoglobin 11.4 g/dL (13.5-17.5); Lymphocytes % (auto) 11.5 % (10.0-50.0); Mean Corpuscular Hemoglobin 29.1 pg (28.0-32.0); Mean Corpuscular Hgb Conc. 34.3 g/dL (32.0-36.0); Monocytes # (auto) 0.8 10 ^3/uL (0-1.3); Monocytes % (auto) 9.4 % (0.0-12.0); Neutrophils # (auto) 6.1 10 ^3/uL (1.6-8.6); Neutrophils % (auto) 71.8 % (37.0-80.0); Platelet Count (auto) 255 10^3/uL (140-450); Red Blood Cells 3.91 10^6/uL (4.5-5.90); Red Cell Distribution Width 14.7 % (11.8-14.3); White Blood Cell 8.5 10^3/uL (4.4-10.8)
[2024-07-04 06:21] LABS: Alanine Aminotransferase 36 U/L (7-40); Albumin 3.8 g/dL (3.2-4.8); Anion Gap 7 (5-15); Aspartate Aminotransferase 26 U/L (13-40); BUN/Creatinine Ratio 21.7 (10.0-20.0); Chloride 101 mmol/L (98-107); Glucose 105 mg/dL (74-106); Sodium 141 mmol/L (136-145)
[2024-07-04 06:22] LABS: Alkaline Phosphatase 200 U/L (46-116); Bilirubin, Total 0.7 mg/dL (0.2-1.0); Blood Urea Nitrogen 28 mg/dL (9-23); Carbon Dioxide 33 mmol/L (20-31); Potassium 3.1 mmol/L (3.5-5.1); Total Protein 6.1 g/dL (5.7-8.2)
[2024-07-04 06:24] LABS: Calcium 13.2 mg/dL (8.7-10.4)
[2024-07-04] MEDS: POTASSIUM CHL 20MEQ/100ML 100 ML IV SCH (07:30)
[2024-07-04] MEDS ORDERED: IOHEXOL 300 MG/ML 100ML BOTTLE IJ ONE (08:05)
[2024-07-04] MEDS: hydrALAZINE HCL 20 MG/ML VL IV ONE (08:38)
[2024-07-04] MEDS ORDERED: IODIXANOL 320MG/ML 100ML BTL IV ONE ×2 (09:00→09:01)
--- NOTE | 2024-07-04 09:21 | DVHINCON2 ---
Date of service: Jul 04, [address] Cantor Reason for Consultation Acute kidney injury History of Present Illness Patient is a 73-year-old male with past medical history significant for HTN, AL, Congestive heart failure, CAD status post PCI, ulcerative colitis and Parkinson disease is admitted for abdominal pain on admission patient found to have elevated creatinine and calcium nephrology is consulted for acute kidney injury Past Medical History PAST MEDICAL HISTORY: HTN, AL, Parkinson's, chronic ulcerative colitis, Congestive heart failure, AFib Past Surgical History Surgical History: Cholecystectomy, PTCA, Tonsillectomy, Left knee surgery Allergies: Coded Allergies: Cephalexin (Verified Allergy, Unknown, RASH, 11/14/18) Penicillins (Verified Allergy, Unknown, RASH, 11/14/18) Home Meds Reported Medications Docusate Sodium (Dulcolax Stool Softener) 100 Mg Cap, 100 MG PO BID, CAP 07/04/24 Ticagrelor Base (BRILINTA) 90 Mg Tab, 1 TAB PO DAILY 07/04/24 Amantadine HCl (Amantadine HCl) 100 Mg Cap, 1 TAB PO DAILY 07/04/24 Aspirin-Caffeine (Anacin 400-32 mg) 1 Tab Tab, 1 TAB PO DAILY, TAB 11/09/19 Hydrocodone-Acetaminophen (Bradley 10-325 mg) 1 Tab Tab, 1 TAB PO BID, TAB 11/09/19 Rosuvastatin Calcium (Crestor) 40 Mg Tab, 1 TAB PO DAILY, #30 TAB 5 Refills 11/09/19 Losartan Potassium (Losartan Potassium) 100 Mg Tab, 100 MG PO DAILY for 30 Days, MG 11/09/19 Pantoprazole Sodium Sesquihydr (Pantoprazole Sodium) 40 Mg Tab, 40 MG PO DAILY, TAB 11/14/18 Metoprolol Succinate (Metoprolol Succinate Er) 50 Mg Tab, 50 MG PO DAILY for 30 Days, MG 11/14/18 Colestipol Hcl (Colestipol Hcl) 1 Gm Tab, 1 GM PO DAILYP, TAB 09/23/18 Current Medications Current Medications Medications (Trade) Dose Ordered Sig/Gt Route PRN Reason Start Time Stop Time Status Last Admin Levofloxacin/ Dextrose 100 ml @ 100 mls/hr DAILY IV 07/04/24 10:00 07/03/24 18:55 DC Metronidazole 100 ml @ 100 mls/hr Q8HR IV 07/03/24 22:00 07/04/24 06:39 Levofloxacin (Levaquin Tablet) 500 mg DAILY PO 07/04/24 10:00 Acetaminophen (Tylenol Tablet) 650 mg Q6HP PRN PO PAIN SCALE 1-3 OR TEMP>100.4 07/03/24 22:00 Potassium Chloride 100 ml @ 50 mls/hr Q2H IV 07/03/24 22:00 07/04/24 01:59 DC 07/04/24 05:18 Metoprolol Succinate (Toprol Xl) 50 mg DAILY PO 07/03/24 22:00 07/03/24 22:16 Pantoprazole Sodium (Protonix) 40 mg DAILY IV 07/04/24 10:00 Sodium Chloride 1,000 ml @ 100 mls/hr Q10H IV 07/03/24 22:15 07/03/24 22:15 Magnesium Sulfate/ Dextrose 100 ml @ 100 mls/hr Q1HR IV 07/04/24 00:00 07/04/24 02:59 DC 07/04/24 05:18 Losartan Potassium (Cozaar Tablet) 100 mg DAILY PO 07/04/24 04:45 Amantadine HCl (Symmetrel Capsule) 100 mg DAILY PO 07/04/24 10:00 Ticagrelor (Brilinta) 90 mg DAILY PO 07/04/24 10:00 Magnesium Sulfate/ Dextrose 100 ml @ 100 mls/hr Q1HR IV 07/04/24 06:00 07/04/24 06:59 DC Potassium Chloride 100 ml @ 50 mls/hr Q2H IV 07/04/24 07:30 07/04/24 11:29 Family History: Alcoholism Atrial fibrillation G8 SISTER Cardiovascular disease G8 FATHER Diabetes mellitus G8 MOTHER G8 FATHER Review of Systems All 12 item review of systems reviewed with the patient nonsignificant except what is mentioned in the history of present illness H&P Exam Vital Signs/I&O Vital Sign Date Time Temp Pulse Resp B/P (MAP) Pulse Ox O2 Delivery O2 Flow Rate FiO2 07/04/24 08:38 189/95 07/04/24 05:19 97.4 65 19 97 97.4 07/04/24 00:30 Room Air* 0 21 Intake and Output 07/03/24 07/04/24 19:00 07:00 Intake Total 0 ml Output Total 400 ml Balance -400 ml Intake Oral 0 ml Output Urine Total 400 ml Physical Exam Patient lying comfortably in bed no acute distress Lungs clear to auscultation bilaterally Cardiac exam regular rate and rhythm GI soft nontender was normal Extremity no clubbing cyanosis or edema Neuro nonfocal Labs/Diagnostic Data Labs/Diagnostic Data Laboratory Tests Test 07/04/24 05:02 07/03/24 22:04 07/03/24 16:08 07/03/24 15:28 Range/Units White Blood Count 8.5 9.6 4.4-10.8 10^3/uL Red Blood Count 3.91 L 4.51 4.5-5.90 10^6/uL Hemoglobin 11.4 L 13.0 L 13.5-17.5 g/dL Hematocrit 33.3 #L 38.7 L 41.0-53.0 % Mean Corpuscular Volume 85.0 85.8 80.0-100.0 fL Mean Corpuscular Hemoglobin 29.1 29.0 28.0-32.0 pg Mean Corpuscular Hemoglobin Concent 34.3 33.8 32.0-36.0 g/dL Red Cell Distribution Width 14.7 H 14.1 11.8-14.3 % Platelet Count 255 299 140-450 10^3/uL Mean Platelet Volume 7.5 7.4 6.9-10.8 fL Neutrophils (%) (Auto) 71.8 73.6 37.0-80.0 % Lymphocytes (%) (Auto) 11.5 11.4 10.0-50.0 % Monocytes (%) (Auto) 9.4 9.2 0.0-12.0 % Eosinophils (%) (Auto) 6.2 5.0 0.0-7.0 % Basophils (%) (Auto) 1.1 0.8 0.0-2.0 % Neutrophils # (Auto) 6.1 7.1 1.6-8.6 10 ^3/uL Lymphocytes # (Auto) 1.0 1.1 0.4-5.4 10 ^3/uL Monocytes # (Auto) 0.8 0.9 0-1.3 10 ^3/uL Eosinophils # (Auto) 0.5 0.5 0-0.8 10 ^3/uL Basophils # (Auto) 0.1 0.1 0-0.2 10 ^3/uL Nucleated Red Blood Cells 0.0 0.1 % Sodium Level 141 140 138 136-145 mmol/L Potassium Level 3.1 L 2.9 L 2.9 L 3.5-5.1 mmol/L Chloride Level 101 101 97 L 98-107 mmol/L Carbon Dioxide Level 33 H 32 H 34 H 20-31 mmol/L Anion Gap 7 7 7 5-15 Blood Urea Nitrogen 28 H 28 H 27 H 9-23 mg/dL Creatinine 1.29 1.21 1.34 H 0.700-1.30 mg/dL Glomerular Filtration Rate Calc 59 63 56 >90 mL/min BUN/Creatinine Ratio 21.7 H 23.1 H 20.1 H 10.0-20.0 Serum Glucose 105 95 96 74-106 mg/dL Calcium Level 13.2 *H 13.9 *H 15.2 *H 8.7-10.4 mg/dL Magnesium Level 2.4 1.9 1.6-2.6 mg/dL Total Bilirubin 0.7 0.2-1.0 mg/dL Aspartate Amino Transferase (AST) 26 13-40 U/L Alanine Aminotransferase (ALT) 36 7-40 U/L Alkaline Phosphatase 200 H 46-116 U/L Total Protein 6.0 5.7-8.2 g/dL Albumin 3.8 4.0 3.2-4.8 g/dL Phosphorus Level 3.5 2.4-5.1 mg/dL B-Type Natriuretic Peptide 35.27 0-100 pg/mL Vitamin D 25-Hydroxy 121.4 H 30.0-100 ng/mL Thyroid Stimulating Hormone (TSH) 2.39 0.55-4.78 uIU/mL Parathyroid Hormone (Intact) 4.8 L 18.4-80.1 pg/mL Prothrombin Time 10.7 9.3-11.8 sec Prothrombin Time INR 1.01 0.9-1.15 Activated Partial Thromboplast Time 24.3 L 24.5-34.5 SEC Lactic Acid Level 1.7 0.4-2.0 mmol/L Urine Color Dark-yellow Yellow Urine Clarity Clear Clear Urine pH 5.5 5.0-9.0 Urine Specific [place] 1.011 1.001-1.035 Urine Protein Negative Negative Urine Ketones Negative Negative Urine Blood Negative Negative /uL Urine Nitrite 1+ H Negative Urine Bilirubin 1+ Negative Urine Urobilinogen 3 H Negative mg/dL Urine Leukocyte Esterase Negative Negative /uL Urine RBC 4 0 - 3 /hpf Urine Microscopic WBC 2 0-3 /HPF Urine Squamous Epithelial Cells Few <5 /hpf Urine Bacteria None seen None Seen /hpf Urine Glucose Normal Normal mg/dL Assessment Acute kidney injury secondary hemodynamic mediated Hypercalcemia rule out malignancy Chronic diastolic heart failure AFib Hypertension Parkinson's disease Hypokalemia Recommendations Closely monitor fluid and electrolytes Avoid nephrotoxic medications Strict I&Os Check urine electrolytes Check kidney ultrasound KCL replacement Check Check 25 hydroxyvitamin D and PTH Consider bisphosphonate IV Malignancy workup per primary team We will continue to follow Patient seen and examined by myself. I discussed my plan of care with the patient and primary nurse at the bedside I would like to thank Dr. Cantor for the consult, will follow Plan discussed with: Patient THERESA PICHARDO MD Jul 04, 2024 09:21
[2024-07-04] MEDS ORDERED: levoFLOXacin 500MG 100 ML IV SCH (10:00)
[2024-07-04] MEDS: POTASSIUM CHL 20MEQ/100ML 100 ML IV ONE (10:27)
[2024-07-04] MEDS: PANTOPRAZOLE 40 MG/10 ML VIAL INJ IV SCH (10:27)
[2024-07-04] MEDS: levoFLOXacin 500 MG TAB PO SCH (10:29)
[2024-07-04] MEDS: TICAGRELOR 90 MG TAB PO SCH (10:29)
--- NOTE | 2024-07-04 10:30 | DVHPNRES ---
Progress Note Date Seen: Jul 04, 2024 Resident Creating Document: MACARIO MORGAN RESIDENT Medical Necessity Reason Pt with a Central, PICC or Fol: No Subjective Review of Systems This is a 73-year-old male with past medical history of atrial fibrillation s/p ablation in 2018, CAD s/p PTCA x3 with stenting of left main, lad and circumflex, ulcerative colitis diagnosed in September 2023, bilateral pulmonary embolisms, Parkinson disease, systolic heart failure, asthma, hypertension, who came in due to abdominal pain that has been ongoing for the past 2 weeks. Per patient's , he has also been experiencing dysuria for the past 2 days along with some confusion and delusions/hallucinations. They called patient's PCP who prescribed Levaquin, patient took 1 dose of Levaquin yesterday on 07/01/2024. However, due to continued dysuria, confusion and worsening generalized weakness with inability to walk is what prompted this visit to the hospital. On admission patient was noted to have hypercalcemia of 15.2 and subsequent measurement became 13.9>13.2, PTH 4.8 and vitamin D 121.4. Patient was seen and examined on the bedside. He is alert, oriented x3. Complains of right lower quadrant pain, frequency and urgency and no other active complaint. Constitutional: No: Fever, Chills, Sweats, Weakness, Malaise, Other Eyes: No: Pain, Vision change, Conjunctivae inflammation, Eyelid inflammation, Other, Redness ENT: No: Ear pain, Ear discharge, Nose pain, Nose discharge, Nose congestion, Mouth pain, Mouth swelling, Throat pain, Throat swelling, Other Respiratory: Shortness of breath, improving No: Cough, Dry,Wheezing, Hemoptysis, Pleuritic Pain, Sputum, Wheezing, Other Cardiovascular: No: Chest Pain, Palpitations, Orthopnea, Paroxysmal Noc. Dyspnea, Edema, Lt Headedness, Other Gastrointestinal: No: Nausea, Vomiting, Abdominal Pain, Diarrhea, Constipation, Melena, Hematochezia, Other Musculoskeletal: No: other, neck pain, shoulder pain, arm pain, back pain, hand pain, leg pain, foot pain Neurological:; No: Weakness, Numbness, Incoordination, Change in speech, Confusion, Seizures Objective vital signs Vital Sign Date Time Temp Pulse Resp B/P (MAP) Pulse Ox O2 Delivery O2 Flow Rate FiO2 07/04/24 10:28 65 189/95 07/04/24 05:19 97.4 19 97 97.4 07/04/24 00:30 Room Air* 0 21 Total Intake and Output 07/03/24 07/03/24 07/04/24 15:00 23:00 07:00 Intake Total 0 ml Output Total 400 ml Balance -400 ml medications Current Medications Medications Dose Ordered Sig/Gt Route Start Time Stop Time Status Last Admin Dose Admin Metronidazole 100 ml @ 100 mls/hr Q8HR IV 07/03/24 22:00 07/04/24 06:39 100 MLS/HR Levofloxacin 500 mg DAILY PO 07/04/24 10:00 07/04/24 10:29 500 MG Acetaminophen 650 mg Q6HP PRN PO 07/03/24 22:00 Metoprolol Succinate 50 mg DAILY PO 07/03/24 22:00 07/04/24 10:28 50 MG Pantoprazole Sodium 40 mg DAILY IV 07/04/24 10:00 07/04/24 10:27 40 MG Sodium Chloride 1,000 ml @ 100 mls/hr Q10H IV 07/03/24 22:15 07/03/24 22:15 100 MLS/HR Losartan Potassium 100 mg DAILY PO 07/04/24 04:45 Amantadine HCl 100 mg DAILY PO 07/04/24 10:00 Ticagrelor 90 mg DAILY PO 07/04/24 10:00 07/04/24 10:29 90 MG Potassium Chloride 100 ml @ 50 mls/hr Q2H IV 07/04/24 07:30 07/04/24 11:29 Examination Physical examination: General Appearance: Alert, Oriented X3, Cooperative, No acute distress, confused HEENT: Atraumatic, PERRLA, EOMI, Mucous membrane moist/pink Respiratory: Clear to auscultation, Normal air movement Cardiovascular: Regular rate, Normal S1, Normal S2, No murmurs, no chest wall tenderness Abdominal: rebound tenderness present in the rt lower quadrant, Normal bowel sounds, Soft, No hepatosplenomegaly, No masses Extremities: No clubbing, No cyanosis, No edema, Normal pulses, No tenderness/swelling Skin: No rashes, No breakdown, No significant lesion Neuro: Resting pill rolling tremor in bilateral hands, shuffling gait, Normal speech, Strength at 5/5 X4 ext, Normal tone, Sensation intact, grossly intact cranial nerves. Confused Psych/Mental Status: Confused laboratory and microbiology Laboratory Tests 07/04/24 05:02 Test 07/04/24 05:02 Range/Units Serum Glucose 105 74-106 mg/dL Labs and/or images reviewed: Labs reviewed by me, Image(s) reviewed by me Problem List/Assessment/Plan Problem List/Assessment/Plan Assessment/Plan: # Subacute/chronic hypercalcemia with minimal symptoms likely due to hypervitaminosis D/ granulomatous disease # Rule out malignancy - IV NS at 100 ml/hr - serum calcium 15.2 > 13.9>13.2 - PTH 4.8, vitamin-D 121.4 - CXR: Clear lungs - CT abdomen pelvis with contrast revealed minimal fat stranding around the appendix. - ordered PSA - EKG q.4 hours # Possible acute appendicitis # History of ulcerative colitis, currently not on any treatment - CT abdomen pelvis: Mild fat stranding surrounding the appendix suggestive of acute appendicitis, there is no periappendiceal fluid collection or free air. Prostatomegaly. - IV metronidazole 500 mg q8hr and levofloxacin 500 mg po daily. - Surgery recommended conservative management and advanced to clear liquid diet. # Coronary artery disease s/p PTCA x3 # Hypertension heart disease - Continue Brilinta 90 mg p.o. daily, losartan 100 mg daily and metoprolol succinate 50 mg daily. - echo from 2019: Left atrial enlargement. EF 60%. - BNP 35.27 - Ordered repeat echo # Hypokalemia - Replenished - Ordered repeat potassium # IDALIA likely secondary to hemodynamically mediated/VMN - IV NS 1 L bolus - IV NS maintenance at 100 cc/hour - Avoid nephrotoxic agents - Monitor BMP # History of Parkinson's disease - Continue amantadine 100 mg p.o. daily PUD prophylaxis: Protonix 40mg Goals of care: Full code, discussed for 20 minutes with the patient's Plan discussed with Dr. Santana Plan discussed with: Patient (As much as he understood), Spouse, Other (RN) My Orders My Orders Orders - MACARIO MORGAN RESIDENT Procedure Category Date Status Time Potassium Chl PHA 07/04/24 In Process 20meq/100ml 07:30 Addendum Addendum Addendum I was physically present for the espino portions of the service provided to patient by THE RESIDENT. I have reviewed the documentation, discussed the case with resident and agree with the resident's documentation except as noted. Also the patient's clinical case was discussed with the patient's nurse. This medical document was created using an electronic medical record system with computerized dictation system. Although this document has been carefully reviewed, there might still be some phonetic and typographical errors. These areas are purely typographical due to imperfections of the software programs, and do not reflect any compromise in the patient's medical care. Late signature. Date of Service: Jul 04, 2024 Billing Provider: NEREYDA SANTANA MD Common Visit Codes: 73544-[id number] INP/OBS CARE(HIGH) Secondary Visit Codes: 63837-[id number] CARE PLAN 30 MINUTES (20 minutes) MACARIO MORGAN RESIDENT Jul 04, 2024 10:30 NEREYDA SANTANA MD Jul 05, 2024 18:50
--- NOTE | 2024-07-04 10:31 | DVH ---
Exam: CT CT CHEST/AB/PL W CON- IV ONLY History: malignancy COMPARISON: None Technique: Multidetector spiral CT of the abdomen and pelvis was performed from lung bases to pubic s ymphysis. Intravenous contrast was administered during this examination. Portal venous imaging was obtained. Axial, coronal and sagittal multiplanar reformats were performed by the technologist on a separate workstation. Radiation Dose : 1. Abdomen/Pelvis: CTDIvol 11 mGy, DLP 748.01 mGy*cm. CONTRAST: Type of contrast: Omnipaque 300 Contrast injected: 100 ml Contrast ingested:0 ml Findings: Lung Bases: No acute or significant lung base finding. Normal heart size. No pleural or pericardial effusion. Coronary artery calcification. Liver: The liver is normal in size. No focal lesions. Normal hepatic vascular enhancement. Multiple small liver cysts. Gallbladder and biliary Tree: Patient status post cholecystectomy. Spleen: Unremarkable Pancreas: The pancreas is normal in appearance without focal lesions or abnormal enhancement. Adrenal Glands: Unremarkable Kidneys: No hydronephrosis. Bladder: Unremarkable Bowel: Very minimal fat stranding adjacent to the appendix, not simply change from the prior study. N o diverticulitis. Ascites: Absent Lymphadenopathy: No mesenteric, retroperitoneal or periportal lymphadenopathy. Abdominal wall and Mesentery: Unremarkable. Vasculature: The visualized abdominal aorta is normal in size and caliber. Abdominal and pelvic vesse ls demonstrate normal enhancement. Mild ectasis of the ascending aortia. No pulmonary emboli. Pelvic Organs: Moderate enlargement of the prostate. Musculoskeletal: Grade 1 spondylolisthesis of L5 on S1. Bilateral pars defects. Moderate lumbar spond ylosis. IMPRESSION: 1. No interval change in the minimal fat stranding surrounding the appendix. No abscess. 2. No significant change compared to the prior study. Radiation optimization: All CT scans at this facility use at least one of these dose optimization mera hniques: Automated exposure control mA and/or kV adjustment per patient size (includes targeted exams where dose is matched to clinical indication) or iterative reconstruction.
--- NOTE | 2024-07-04 11:03 | DVHPN2 ---
Progress Note - Dictate Date Seen: Jul 04, 2024 Medical Necessity Reason Pt with a Central, PICC or Fol: No Subjective E: no major events o/n. no complaints. denies RLQ pain. vital signs Vital Sign Date Time Temp Pulse Resp B/P (MAP) Pulse Ox O2 Delivery O2 Flow Rate FiO2 07/04/24 10:28 65 189/95 07/04/24 05:19 97.4 19 97 97.4 07/04/24 00:30 Room Air* 0 21 Total Intake and Output 07/03/24 07/03/24 07/04/24 15:00 23:00 07:00 Intake Total 0 ml Output Total 400 ml Balance -400 ml medications Current Medications Medications Dose Ordered Sig/Gt Route Start Time Stop Time Status Last Admin Dose Admin Metronidazole 100 ml @ 100 mls/hr Q8HR IV 07/03/24 22:00 07/04/24 06:39 100 MLS/HR Levofloxacin 500 mg DAILY PO 07/04/24 10:00 07/04/24 10:29 500 MG Acetaminophen 650 mg Q6HP PRN PO 07/03/24 22:00 Metoprolol Succinate 50 mg DAILY PO 07/03/24 22:00 07/04/24 10:28 50 MG Pantoprazole Sodium 40 mg DAILY IV 07/04/24 10:00 07/04/24 10:27 40 MG Sodium Chloride 1,000 ml @ 100 mls/hr Q10H IV 07/03/24 22:15 07/03/24 22:15 100 MLS/HR Losartan Potassium 100 mg DAILY PO 07/04/24 04:45 Amantadine HCl 100 mg DAILY PO 07/04/24 10:00 Ticagrelor 90 mg DAILY PO 07/04/24 10:00 07/04/24 10:29 90 MG Potassium Chloride 100 ml @ 50 mls/hr Q2H IV 07/04/24 07:30 07/04/24 11:29 objective GEN: NAD ABD: soft. NT/ND. laboratory and microbiology Laboratory Tests 07/04/24 05:02 Test 07/04/24 05:02 Range/Units Serum Glucose 105 74-106 mg/dL Assessment/Plan A: 1. poss early appendicitis but clinically stable on abx P: 1. d/w patient and . as he is clinically stable and with no abd pain, normal WBC and his comorbidities, I think it is very reasonable to treat conservatively. they agree and do not want surgeyr 2. start clear liquid diet. if tolerating, ok to DC from surgery POV with oral levaquin/flagyl combo for 3-5 additional days. Plan discussed with: Patient, Spouse MANJU PARKER MD Jul 04, 2024 11:03
[2024-07-04] MEDS: AMANTADINE HCL 100 MG CAP PO SCH (12:22)
[2024-07-04] MEDS: ACETAMINOPHEN 325 MG TAB PO PRN (15:45)
--- NOTE | 2024-07-04 17:11 | DVHSR ---
APPROVED REPORT EXAM: Two-dimensional and M-mode echocardiogram with Doppler and color Doppler. Blood Pressure: 189/95 mmHg INDICATION SOB RISK FACTORS Height: 5'9", Weight: 161 DIMENSIONS LVDd4.2 (3.8-5.7cm)LA (2D)3.5 (1.9-4.0cm)Aortic Root4.0 (2.0-3.7cm) LVDs3.2 (2.5-4.0cm)LA (MM) (1.9-4.0cm)Aortic Cusp Exc1.9 (1.5-2.0cm) EF (%) 65.0 (55-70%)Rt. Atrium3.8 (1.9-4.0cm)Asc. Aorta cm IVSd1.2 (0.7-1.1cm)RV (D)3.6 (1.8-2.4cm) PWd1.1 (0.7-1.1cm) Mitral Valve MitralMitral Stenosis E wave0.82m/sMV Mean GR.mmHg A wave0.91m/sMV Peak GR.mmHg E/A ratio0.92D MVAcm2 DECEL [id number] 1/2 Timems Aortic Valve Aortic ValveAortic Stenosis V11.10m/Ziggy Mean GR.2mmHg V21.12m/Ziggy Peak GR.5mmHg LVOT Diameter2.3 (1.8-2.4cm)Doppler AVA4.08cm2 Pulmonic Valve V20.83m/s LEFT VENTRICLE The there is of normal size. There is mild left ventricular hypertrophy mostly in the septum. Eject ion fraction is normal and is estimated at 65%. There is no regional wall motion abnormalities. Mary stolic function appears to be preserved. E to E prime ratio is in the normal range. RIGHT VENTRICLE The right ventricle is of normal size. Systolic function is normal. ATRIA Both atria are of normal size. Interatrial septum appears to be normal. MITRAL VALVE Normal structure and function. There is mild mitral regurgitation. PULMONIC VALVE Likely normal. TRICUSPID VALVE Normal structure and function. There is mild tricuspid regurgitation. PA systolic pressure is not a dequately estimated. AORTIC VALVE Trileaflet in morphology. Normal structure and function. GREAT VESSELS Aortic root measures 4.0 cm at the sinuses of Valsalva. Proximal ascending aorta is not visualized. PERICARDIAL EFFUSION No significant pericardial effusion. IVC is not visualized. Conclusion Normal left ventricular size and systolic function. Ejection fraction is estimated at 65%. Mild left ventricular hypertrophy. Normal right ventricular size and systolic function. No hemodynamically significant valvular disease. Mildly dilated aortic root. PA systolic pressure is not adequately estimated. No significant pericardial effusion.
[2024-07-05] VITALS (9 sets, daily range): BP systolic 142–179; BP diastolic 71–95; PULSE 60–78; RESP 18–19; TEMP 97.3–98.1; O2SAT 94–98
[2024-07-05 06:48] LABS: Basophils # (auto) 0.1 10 ^3/uL (0-0.2); Eosinophils # (auto) 0.5 10 ^3/uL (0-0.8); Eosinophils % (auto) 6.7 % (0.0-7.0); Hematocrit 32.6 % (41.0-53.0); Lymphocytes # (auto) 0.9 10 ^3/uL (0.4-5.4); Lymphocytes % (auto) 11.2 % (10.0-50.0); Mean Corpuscular Hemoglobin 28.9 pg (28.0-32.0); Mean Corpuscular Hgb Conc. 33.8 g/dL (32.0-36.0); Mean Corpuscular Volume 85.4 fL (80.0-100.0); Monocytes # (auto) 0.7 10 ^3/uL (0-1.3); Monocytes % (auto) 8.8 % (0.0-12.0); Neutrophils # (auto) 5.8 10 ^3/uL (1.6-8.6); Neutrophils % (auto) 72.3 % (37.0-80.0); Platelet Count (auto) 252 10^3/uL (140-450); Red Blood Cells 3.82 10^6/uL (4.5-5.90); Red Cell Distribution Width 15.1 % (11.8-14.3); White Blood Cell 8.1 10^3/uL (4.4-10.8)
[2024-07-05 06:59] LABS: Anion Gap 9 (5-15); Carbon Dioxide 29 mmol/L (20-31); Chloride 104 mmol/L (98-107); Sodium 142 mmol/L (136-145)
[2024-07-05 07:05] LABS: BUN/Creatinine Ratio 17.7 (10.0-20.0); Glucose 81 mg/dL (74-106)
[2024-07-05 07:07] LABS: Blood Urea Nitrogen 25 mg/dL (9-23); Calcium 12.8 mg/dL (8.7-10.4); Potassium 3.1 mmol/L (3.5-5.1)
[2024-07-05] MEDS: POTASSIUM EFFERVESENT TAB 25 MEQ PO ONE (10:03)
[2024-07-05 10:33] LABS: Calcium 12.5 mg/dL (8.7-10.4); Potassium 2.9 mmol/L (3.5-5.1)
--- NOTE | 2024-07-05 10:48 | DVHPN2 ---
Progress Note - Dictate Date Seen: Jul 05, 2024 Medical Necessity Reason Pt with a Central, PICC or Fol: No Subjective E: no major events o/n. no complaints. denies abdominal pain. elise clear liquid diet. vital signs Vital Sign Date Time Temp Pulse Resp B/P (MAP) Pulse Ox O2 Delivery O2 Flow Rate FiO2 07/05/24 10:04 173/71 07/05/24 10:03 65 07/05/24 09:00 97.9 18 97 97.9 07/05/24 08:00 Room Air* 0 21 Total Intake and Output 07/04/24 07/04/24 07/05/24 15:00 23:00 07:00 Intake Total 100 ml 1430 ml 300 ml Output Total 850 ml 350 ml Balance 100 ml 580 ml -50 ml medications Current Medications Medications Dose Ordered Sig/Gt Route Start Time Stop Time Status Last Admin Dose Admin Metronidazole 100 ml @ 100 mls/hr Q8HR IV 07/03/24 22:00 07/05/24 05:02 100 MLS/HR Levofloxacin 500 mg DAILY PO 07/04/24 10:00 07/05/24 10:04 500 MG Acetaminophen 650 mg Q6HP PRN PO 07/03/24 22:00 07/04/24 15:45 650 MG Metoprolol Succinate 50 mg DAILY PO 07/03/24 22:00 07/05/24 10:03 50 MG Pantoprazole Sodium 40 mg DAILY IV 07/04/24 10:00 07/05/24 10:03 40 MG Sodium Chloride 1,000 ml @ 100 mls/hr Q10H IV 07/03/24 22:15 07/04/24 21:33 100 MLS/HR Losartan Potassium 100 mg DAILY PO 07/04/24 04:45 07/05/24 10:04 100 MG Amantadine HCl 100 mg DAILY PO 07/04/24 10:00 07/04/24 12:22 100 MG Ticagrelor 90 mg DAILY PO 07/04/24 10:00 07/05/24 10:04 90 MG objective GEN: NAD ABD: soft. NT/ND. laboratory and microbiology Laboratory Tests 07/05/24 09:47 07/05/24 05:07 Test 07/05/24 05:07 Range/Units Serum Glucose 81 74-106 mg/dL Assessment/Plan A: 1. poss early appendicitis but clinically stable on abx P: 1. advance to full liquid diet. 2. stable from surgery POV. if discharged, recommend oral levaquin/flagyl combo for 2-3 additional days. Plan discussed with: Patient, Spouse, Daughter KEITHMANJUDurga Nolen MD Jul 05, 2024 10:48
--- NOTE | 2024-07-05 10:56 | DVHPN2 ---
Progress Note Date Seen: Jul 05, 2024 Medical Necessity Reason Pt with a Central, PICC or Fol: No Subjective Patient reports: No new complaints Other Systems: Patient seen and examined by myself today in follow-up Objective vital signs Vital Sign Date Time Temp Pulse Resp B/P (MAP) Pulse Ox O2 Delivery O2 Flow Rate FiO2 07/05/24 10:04 173/71 07/05/24 10:03 65 07/05/24 09:00 97.9 18 97 97.9 07/05/24 08:00 Room Air* 0 21 Total Intake and Output 07/04/24 07/04/24 07/05/24 15:00 23:00 07:00 Intake Total 100 ml 1430 ml 300 ml Output Total 850 ml 350 ml Balance 100 ml 580 ml -50 ml medications Current Medications Medications Dose Ordered Sig/Gt Route Start Time Stop Time Status Last Admin Dose Admin Metronidazole 100 ml @ 100 mls/hr Q8HR IV 07/03/24 22:00 07/05/24 05:02 100 MLS/HR Levofloxacin 500 mg DAILY PO 07/04/24 10:00 07/05/24 10:04 500 MG Acetaminophen 650 mg Q6HP PRN PO 07/03/24 22:00 07/04/24 15:45 650 MG Metoprolol Succinate 50 mg DAILY PO 07/03/24 22:00 07/05/24 10:03 50 MG Pantoprazole Sodium 40 mg DAILY IV 07/04/24 10:00 07/05/24 10:03 40 MG Sodium Chloride 1,000 ml @ 100 mls/hr Q10H IV 07/03/24 22:15 07/04/24 21:33 100 MLS/HR Losartan Potassium 100 mg DAILY PO 07/04/24 04:45 07/05/24 10:04 100 MG Amantadine HCl 100 mg DAILY PO 07/04/24 10:00 07/04/24 12:22 100 MG Ticagrelor 90 mg DAILY PO 07/04/24 10:00 07/05/24 10:04 90 MG Examination: LUNGS:Normal, CVS:Normal, MSK:Normal laboratory and microbiology Laboratory Tests 07/05/24 09:47 07/05/24 05:07 Test 07/05/24 05:07 Range/Units Serum Glucose 81 74-106 mg/dL Microbiology Date/Time Source Procedure Growth Status 07/03/24 16:11 Blood Blood Culture - Preliminary NO GROWTH AFTER 24 HOURS OF INCUBATION. Resulted 07/03/24 15:28 Voided Urine Urine Culture - Preliminary Resulted Problem List/Assessment/Plan Problem List/Assessment/Plan Acute kidney injury secondary hemodynamic mediated Hypercalcemia rule out malignancy Chronic diastolic heart failure AFib Hypertension Parkinson's disease Hypokalemia Recommendations Kidney function stabilize Chronic Kidney Disease stage IIIA Increased urine output Strict I&Os Kidney reported within normal limit on CT scan of the Aggressive KCL replacement Consider bisphosphonate IV Malignancy workup per primary team I will sign off this case, please refer to my clinic two weeks after discharge for Chronic Kidney Disease follow-up Thank you for the consult Plan discussed with: Patient THERESA PICHARDO MD Jul 05, 2024 10:56
[2024-07-05] MEDS: POTASSIUM CHL 20MEQ/100ML 100 ML IV SCH (12:15)
[2024-07-05] MEDS: hydrALAZINE HCL 20 MG/ML VL IV ONE (12:53)
--- NOTE | 2024-07-05 13:49 | DVHPNRES ---
Progress Note Date Seen: Jul 05, 2024 Resident Creating Document: DEANNA YEPEZ RESIDENT Has the PT tested + for MRSA If YES, has PT been informed?: No Medical Necessity Reason Pt with a Central, PICC or Fol: No Subjective Review of Systems This is a 73-year-old male with past medical history of atrial fibrillation s/p ablation in 2018, CAD s/p PTCA x3 with stenting of left main, lad and circumflex, ulcerative colitis diagnosed in September 2023, bilateral pulmonary embolisms, Parkinson disease, systolic heart failure, asthma, hypertension, who came in due to abdominal pain that has been ongoing for the past 2 weeks. Per patient's , he has also been experiencing dysuria for the past 2 days along with some confusion and delusions/hallucinations. They called patient's PCP who prescribed Levaquin, patient took 1 dose of Levaquin yesterday on 07/01/2024. However, due to continued dysuria, confusion and worsening generalized weakness with inability to walk is what prompted this visit to the hospital. On admission patient was noted to have hypercalcemia of 15.2 and subsequent measurement became 13.9>13.2, PTH 4.8 and vitamin D 121.4. Patient was admitted for further assessment and management. Patient seen and examined at bedside. The patient is alert and oriented in person, place and time with some parkinsonism type of tremor. The patient and was at bedside both states that the patient still weak and feels fatigued. The patient also states that feels much better compared to admission. Blood pressure was significantly elevated this morning for which hydralazine 10 mg IV was gaved. Blood pressure was reviewed has been elevated since admission reason why we will add amlodipine 5 mg daily. Patient still has hypercalcemia of unknown source. We will continue to try five the cause and possible discharge tomorrow if patient keeps improving. ROS Constitutional: Reports generalized weakness and fatigue. Denies weight loss, fever and chills. HEENT: Denies changes in vision and hearing. Respiratory: Denies shortness of breath and cough Cardiovascular: Denies chest discomfort or palpitations GI: Denies abdominal pain, nausea, vomiting and diarrhea. : Denies dysuria and urinary frequency. Musculoskeletal: Denies myalgias and joint pain Skin: Denies rash and pruritus. Neurological: Denies dizziness, headache, vision or hearing problems Objective vital signs Vital Sign Date Time Temp Pulse Resp B/P (MAP) Pulse Ox O2 Delivery O2 Flow Rate FiO2 07/05/24 12:53 179/95 07/05/24 10:03 65 07/05/24 09:00 97.9 18 97 97.9 07/05/24 08:00 Room Air* 0 21 Total Intake and Output 07/04/24 07/04/24 07/05/24 15:00 23:00 07:00 Intake Total 100 ml 1430 ml 300 ml Output Total 850 ml 350 ml Balance 100 ml 580 ml -50 ml medications Current Medications Medications Dose Ordered Sig/Gt Route Start Time Stop Time Status Last Admin Dose Admin Metronidazole 100 ml @ 100 mls/hr Q8HR IV 07/03/24 22:00 07/05/24 05:02 100 MLS/HR Levofloxacin 500 mg DAILY PO 07/04/24 10:00 07/05/24 10:04 500 MG Acetaminophen 650 mg Q6HP PRN PO 07/03/24 22:00 07/04/24 15:45 650 MG Metoprolol Succinate 50 mg DAILY PO 07/03/24 22:00 07/05/24 10:03 50 MG Pantoprazole Sodium 40 mg DAILY IV 07/04/24 10:00 07/05/24 10:03 40 MG Sodium Chloride 1,000 ml @ 100 mls/hr Q10H IV 07/03/24 22:15 07/05/24 12:15 100 MLS/HR Losartan Potassium 100 mg DAILY PO 07/04/24 04:45 07/05/24 10:04 100 MG Amantadine HCl 100 mg DAILY PO 07/04/24 10:00 07/05/24 11:51 100 MG Ticagrelor 90 mg DAILY PO 07/04/24 10:00 07/05/24 10:04 90 MG Potassium Chloride 100 ml @ 50 mls/hr Q2H IV 07/05/24 11:00 07/05/24 18:59 07/05/24 12:15 50 MLS/HR Examination Physical Examination General: Patient alert and oriented in person, place and time. Parkinsonism type of tremor on bilateral hands. Patient following commands. HEENT: Normocephalic, atraumatic, moist mucous membranes Respiratory/pulmonary: Clear lungs bilaterally, no associated crackles or wheezes. Cardiovascular: Normal heart sounds S1 and S2 with no associated murmurs Abdomen: Abdomen nondistended, there is no pain to palpation in any of the abdominal quadrants, no palpable masses. Extremities: There is no peripheral edema present at the lower extremities. Peripheral Pulses: 3+ Radial (R). 3+ Radial (L). 3+ Dorsalis pedis (R). 3+ Dorsalis pedis(L) Skin: No rashes or pruritus, there is no sacral edema present at this time. Neurological: Intact cranial nerves with no focal neurologic deficits laboratory and microbiology Laboratory Tests 07/05/24 09:47 07/05/24 05:07 Test 07/05/24 05:07 Range/Units Serum Glucose 81 74-106 mg/dL Microbiology Date/Time Source Procedure Growth Status 07/03/24 16:11 Blood Blood Culture - Preliminary NO GROWTH AFTER 24 HOURS OF INCUBATION. Resulted 07/03/24 15:28 Voided Urine Urine Culture - Preliminary Resulted Labs and/or images reviewed: Labs reviewed by me, Image(s) reviewed by me Problem List/Assessment/Plan Problem List/Assessment/Plan Assessment/Plan Subacute/chronic hypercalcemia with minimal symptoms likely due to hypervitaminosis vs. granulomatous disease Rule out malignancy -IV NS at 100 ml/hr -serum calcium 15.2 > 13.9>13.2, Last one 12.5 -PTH 4.8, vitamin-D 121.4 -CXR: Clear lungs -CT abdomen pelvis with contrast revealed minimal fat stranding around the appendix. -ordered PSA -EKG q.4 hours Possible acute appendicitis History of ulcerative colitis, currently not on any treatment - CT abdomen pelvis: Mild fat stranding surrounding the appendix suggestive of acute appendicitis, there is no periappendiceal fluid collection or free air. Prostatomegaly. - Continue IV metronidazole 500 mg q8hr and levofloxacin 500 mg po daily. - Surgery recommended conservative management and advanced to Full liquid diet. Coronary artery disease s/p PTCA x3 Hypertension heart disease - Continue Brilinta 90 mg p.o. daily, losartan 100 mg daily and metoprolol succinate 50 mg daily. - echo from 2019: Left atrial enlargement. EF 60%. -BP was high, IV hydralazine 10mg was gaved but still elevated. We added Amolidipine 5 mg daily -Monitor BP - BNP 35.27 -Echocardiogram showed an LVEF of 65% with no significant valvular abnormalities or pericardial effusion. Hypokalemia - Replenished - Ordered repeat potassium IDALIA likely secondary to hemodynamically mediated/VMN - IV NS 1 L bolus -Continue IV NS maintenance at 100 cc/hour - Monitor BMP History of Parkinson's disease - Continue amantadine 100 mg p.o. daily Plan discussed with Dr. Santana Plan discussed with: Patient, Spouse, Other (RN) My Orders My Orders Orders - DEANNA YEPEZ Procedure Category Date Status Time Pt Request For Service PT 07/05/24 Logged 12:09 * Ramp Agent CONS 07/05/24 Transmitted Consult Addendum Addendum Addendum I was physically present for the espino portions of the service provided to patient by THE RESIDENT. I have reviewed the documentation, discussed the case with resident and agree with the resident's documentation except as noted. Also the patient's clinical case was discussed with the patient's nurse. This medical document was created using an electronic medical record system with computerized dictation system. Although this document has been carefully reviewed, there might still be some phonetic and typographical errors. These areas are purely typographical due to imperfections of the software programs, and do not reflect any compromise in the patient's medical care. Late signature. Date of Service: Jul 05, 2024 Billing Provider: NEREYDA SANTANA MD Common Visit Codes: [id number] INP/OBS CARE(HIGH) DEANNA YEPEZ RESIDENT Jul 05, 2024 13:49 NEREYDA SANTANA MD Jul 06, 2024 04:15
[2024-07-05] MEDS: ALPRAZolam 0.25 MG TAB PO ONE (15:08)
[2024-07-05] MEDS: amLODIPine BESYLATE 5 MG TAB PO SCH (16:30)
[2024-07-06] VITALS (9 sets, daily range): BP systolic 139–165; BP diastolic 67–95; PULSE 62–79; RESP 16–19; TEMP 97.5–97.9; O2SAT 94–100
[2024-07-06] MEDS: hydrALAZINE HCL 20 MG/ML VL IV ONE (05:30)
[2024-07-06 05:38] LABS: Basophils # (auto) 0.1 10 ^3/uL (0-0.2); Basophils % (auto) 1.1 % (0.0-2.0); Eosinophils # (auto) 0.6 10 ^3/uL (0-0.8); Eosinophils % (auto) 7.2 % (0.0-7.0); Hematocrit 32.4 % (41.0-53.0); Lymphocytes # (auto) 0.9 10 ^3/uL (0.4-5.4); Lymphocytes % (auto) 11.8 % (10.0-50.0); Mean Corpuscular Hemoglobin 29.1 pg (28.0-32.0); Mean Corpuscular Hgb Conc. 34.1 g/dL (32.0-36.0); Mean Corpuscular Volume 85.2 fL (80.0-100.0); Monocytes # (auto) 0.7 10 ^3/uL (0-1.3); Monocytes % (auto) 8.6 % (0.0-12.0); Neutrophils # (auto) 5.7 10 ^3/uL (1.6-8.6); Neutrophils % (auto) 71.3 % (37.0-80.0); Platelet Count (auto) 275 10^3/uL (140-450); Red Cell Distribution Width 14.8 % (11.8-14.3); White Blood Cell 7.9 10^3/uL (4.4-10.8)
[2024-07-06 05:42] LABS: Chloride 103 mmol/L (98-107); Sodium 141 mmol/L (136-145)
[2024-07-06 05:43] LABS: Anion Gap 10 (5-15); Carbon Dioxide 28 mmol/L (20-31)
[2024-07-06 05:48] LABS: Glucose 95 mg/dL (74-106)
[2024-07-06 05:49] LABS: Blood Urea Nitrogen 21 mg/dL (9-23)
[2024-07-06 05:56] LABS: Calcium 12.8 mg/dL (8.7-10.4); Potassium 3.1 mmol/L (3.5-5.1)
[2024-07-06] MEDS: POTASSIUM EFFERVESENT TAB 25 MEQ PO ONE ×2 (06:00→09:19)
[2024-07-06] MEDS: ALPRAZolam 0.25 MG TAB PO ONE ×2 (09:17→17:41)
--- NOTE | 2024-07-06 13:17 | DVH ---
ULTRASOUND RENAL CLINICAL INDICATION: Renal artery stenosis TECHNIQUE: Real-time sonographic, duplex, and color Doppler images of the kidneys were obtained. FINDINGS: The right kidney measures 12 cm and is normal in size. The right renal echogenicity, contou r and cortical thickness are within normal limits. No hydronephrosis, large masses or perinephric flu id is seen. The left kidney measures 12 cm and is normal in size. The left renal echogenicity, contour, and corti araceli thickness are within normal limits. no hydronephrosis, large masses or perinephric fluid is seen. Right renal resistive index measures 0.8. Renal PSV/ aorta PSV ratio equals 1.3. Left renal resistive index measures 0.74. Left renal PSV /aorta PSV ratio equals 0.7. IMPRESSION: Mildly elevated right renal resistive index. However consider MRA renal artery protocol to evaluate the right renal artery.
--- NOTE | 2024-07-06 16:23 | DVHPNRES ---
Progress Note Date Seen: Jul 06, 2024 Resident Creating Document: MACARIO MORGAN RESIDENT Has the PT tested + for MRSA If YES, has PT been informed?: No Medical Necessity Reason Pt with a Central, PICC or Fol: No Subjective Review of Systems This is a 73-year-old male with past medical history of atrial fibrillation s/p ablation in 2018, CAD s/p PTCA x3 with stenting of left main, lad and circumflex, ulcerative colitis diagnosed in September 2023, bilateral pulmonary embolisms, Parkinson disease, systolic heart failure, asthma, hypertension, who came in due to abdominal pain that has been ongoing for the past 2 weeks. Per patient's , he has also been experiencing dysuria for the past 2 days along with some confusion and delusions/hallucinations. They called patient's PCP who prescribed Levaquin, patient took 1 dose of Levaquin yesterday on 07/01/2024. However, due to continued dysuria, confusion and worsening generalized weakness with inability to walk is what prompted this visit to the hospital. On admission patient was noted to have hypercalcemia of 15.2 and subsequent measurement became 13.9>13.2, PTH 4.8 and vitamin D 121.4. Patient was admitted for further assessment and management. Patient was seen and examined on the bed side. He is alert, orientedX3. Complains of anxiety and flushing. Readjustment of blood pressure medication to losartan 100 mg p.o. daily, amlodipine 5 mg daily, carvedilol 12.5 mg b.i.d. and IV hydralazine 10 mg q.6 p.r.n.Patient still has hypercalcemia of unknown source. Ordered LDH, IV Lasix 40 mg once and IV bisphosphonate 15 mg in 250 mL of normal saline once as per Nephrology recommendation. consulted Oncology for further recommendation regarding the cause of the hypercalcemia and possible discharge tomorrow if patient continues to improving and blood pressure is controlled and in the safe range for discharge. Objective vital signs Vital Sign Date Time Temp Pulse Resp B/P (MAP) Pulse Ox O2 Delivery O2 Flow Rate FiO2 07/06/24 12:37 97.5 67 16 149/67 (94) 95 97.5 07/06/24 08:00 Room Air* 0 21 Total Intake and Output 07/05/24 07/05/24 07/06/24 15:00 23:00 07:00 Intake Total 280 ml 700 ml 200 ml Output Total 600 ml 300 ml Balance 280 ml 100 ml -100 ml medications Current Medications Medications Dose Ordered Sig/Gt Route Start Time Stop Time Status Last Admin Dose Admin Metronidazole 100 ml @ 100 mls/hr Q8HR IV 07/03/24 22:00 07/06/24 13:24 100 MLS/HR Levofloxacin 500 mg DAILY PO 07/04/24 10:00 07/06/24 09:17 500 MG Acetaminophen 650 mg Q6HP PRN PO 07/03/24 22:00 07/04/24 15:45 650 MG Pantoprazole Sodium 40 mg DAILY IV 07/04/24 10:00 07/06/24 09:18 40 MG Sodium Chloride 1,000 ml @ 100 mls/hr Q10H IV 07/03/24 22:15 07/06/24 13:24 100 MLS/HR Losartan Potassium 100 mg DAILY PO 07/04/24 04:45 07/06/24 09:19 100 MG Amantadine HCl 100 mg DAILY PO 07/04/24 10:00 07/06/24 09:18 100 MG Ticagrelor 90 mg DAILY PO 07/04/24 10:00 07/06/24 09:18 90 MG Amlodipine Besylate 5 mg DAILY PO 07/05/24 15:00 07/06/24 09:17 5 MG Carvedilol 12.5 mg Q12HR PO 07/06/24 22:00 Examination Physical Examination General: Patient alert and oriented in person, place and time. Parkinsonism type of tremor on bilateral hands. Patient following commands. HEENT: Normocephalic, atraumatic, moist mucous membranes Respiratory/pulmonary: Clear lungs bilaterally, no associated crackles or wheezes. Cardiovascular: Normal heart sounds S1 and S2 with no associated murmurs Abdomen: Abdomen nondistended, there is no pain to palpation in any of the abdominal quadrants, no palpable masses. Extremities: There is no peripheral edema present at the lower extremities. Peripheral Pulses: 3+ Radial (R). 3+ Radial (L). 3+ Dorsalis pedis (R). 3+ Dorsalis pedis(L) Skin: No rashes or pruritus, there is no sacral edema present at this time. Neurological: Intact cranial nerves with no focal neurologic deficits laboratory and microbiology Laboratory Tests 07/06/24 05:21 Test 07/06/24 05:21 Range/Units Serum Glucose 95 74-106 mg/dL Microbiology Date/Time Source Procedure Growth Status 07/03/24 16:11 Blood Blood Culture - Preliminary NO GROWTH AFTER 72 HOURS OF INCUBATION. Resulted 07/03/24 15:28 Voided Urine Urine Culture - Final Complete Labs and/or images reviewed: Labs reviewed by me, Image(s) reviewed by me Problem List/Assessment/Plan Problem List/Assessment/Plan Assessment/Plan Subacute/chronic hypercalcemia with minimal symptoms likely due to hypervitaminosis vs. granulomatous disease Rule out malignancy -IV NS at 100 ml/hr -serum calcium 15.2 > 13.9>13.2, Last one 12.8 -PTH 4.8, vitamin-D 121.4 -CXR: Clear lungs -CT abdomen pelvis with contrast revealed minimal fat stranding around the appendix. -ordered PSA, LDH, Calcitriol, metanephrines frac free plasma - IV lasix 40 mg once. - IV pamidronate sodium 15 mg in 250 ml of 0.9% NaCL once. -EKG q.4 hours Possible acute appendicitis History of ulcerative colitis, currently not on any treatment - CT abdomen pelvis: Mild fat stranding surrounding the appendix suggestive of acute appendicitis, there is no periappendiceal fluid collection or free air. Prostatomegaly. - Continue IV metronidazole 500 mg q8hr and levofloxacin 500 mg po daily. - Surgery recommended conservative management and advanced to Full liquid diet. Coronary artery disease s/p PTCA x3 Hypertension heart disease - Continue Brilinta 90 mg p.o. daily, losartan 100 mg daily , amlodipine 5 mg daily, and carvedilol 12.5 mg b.i.d - echo from 2019: Left atrial enlargement. EF 60%. - IV hydralazine 10 mg q6prn. - Monitor BP - BNP 35.27 -Echocardiogram showed an LVEF of 65% with no significant valvular abnormalities or pericardial effusion. - Renal artery u/s mentioned mildly elevated right renal resistive index. Hypokalemia - Replenished - Ordered repeat potassium IDALIA on CKD likely secondary to hemodynamically mediated/VMN - IV NS 1 L bolus -Continue IV NS maintenance at 100 cc/hour - Monitor BMP History of Parkinson's disease - Continue amantadine 100 mg p.o. daily Diet - Cardiac diet PUD prophylaxis: Pepcid 20 mg daily DVT prophylaxis: Pt is on Brilinta Code status : Full code Plan discussed with Dr. Mcclain Plan discussed with: Patient, Other Date of Service: Jul 06, 2024 Billing Provider: TENZIN QUIROS MD Common Visit Codes: [id number] INP/OBS CARE(HIGH) MACARIO MORGAN RESIDENT Jul 06, 2024 16:23 TENZIN QUIROS MD Jul 07, 2024 09:43
[2024-07-06] MEDS: FUROSEMIDE 40 MG/4 ML VIAL IV ONE (16:45)
[2024-07-06] MEDS: SODIUM CHL 0.9% IV ONE (17:42)
[2024-07-06] MEDS: PAMIDRONATE DISODIUM IV ONE (17:42)
[2024-07-06] MEDS: CARVEDILOL 12.5 MG TAB PO SCH (21:56)
[2024-07-07 00:54] VITALS: BP 151/95; PULSE 71; RESP 8; TEMP 97.7; O2SAT 96
[2024-07-07 01:06] LABS: PSA Free 0.57 ng/mL; Prostate Specific Antigen 2.1 ng/mL (0.0-4.0)
[2024-07-07 05:00] VITALS: BP 140/68; PULSE 74; RESP 18; TEMP 97.9; O2SAT 94
[2024-07-07 06:01] LABS: Basophils # (auto) 0.1 10 ^3/uL (0-0.2); Basophils % (auto) 1.1 % (0.0-2.0); Eosinophils # (auto) 0.6 10 ^3/uL (0-0.8); Eosinophils % (auto) 7.2 % (0.0-7.0); Hematocrit 31.8 % (41.0-53.0); Lymphocytes % (auto) 12.5 % (10.0-50.0); Mean Corpuscular Hemoglobin 29.5 pg (28.0-32.0); Mean Corpuscular Hgb Conc. 34.6 g/dL (32.0-36.0); Mean Corpuscular Volume 85.2 fL (80.0-100.0); Monocytes # (auto) 0.6 10 ^3/uL (0-1.3); Monocytes % (auto) 8.1 % (0.0-12.0); Neutrophils # (auto) 5.6 10 ^3/uL (1.6-8.6); Neutrophils % (auto) 71.1 % (37.0-80.0); Nucleated Red Blood Cells % 0.2 %; Platelet Count (auto) 269 10^3/uL (140-450); Red Blood Cells 3.73 10^6/uL (4.5-5.90); Red Cell Distribution Width 15.2 % (11.8-14.3); White Blood Cell 7.9 10^3/uL (4.4-10.8)
[2024-07-07 06:20] LABS: Anion Gap 8 (5-15); Carbon Dioxide 30 mmol/L (20-31); Chloride 104 mmol/L (98-107); Sodium 142 mmol/L (136-145)
[2024-07-07 06:26] LABS: BUN/Creatinine Ratio 15.3 (10.0-20.0); Blood Urea Nitrogen 21 mg/dL (9-23)
[2024-07-07 06:27] LABS: Calcium 12.7 mg/dL (8.7-10.4); Glucose 107 mg/dL (74-106); Potassium 3.1 mmol/L (3.5-5.1)
[2024-07-07 08:00] VITALS: PULSE 76; RESP 16; O2SAT 97
[2024-07-07 09:00] VITALS: BP 150/92; PULSE 78; RESP 18; TEMP 97.9; O2SAT 95
[2024-07-07] MEDS: FUROSEMIDE 40 MG/4 ML VIAL IV SCH (10:00)
[2024-07-07] MEDS: POTASSIUM EFFERVESENT TAB 25 MEQ PO ONE ×2 (10:21→17:45)
[2024-07-07 13:00] VITALS: BP 168/68; PULSE 75; RESP 18; TEMP 97.3; O2SAT 96
[2024-07-07 13:09] LABS: Chloride 103 mmol/L (98-107); Sodium 141 mmol/L (136-145)
[2024-07-07 13:10] LABS: Anion Gap 8 (5-15); Carbon Dioxide 30 mmol/L (20-31); Potassium 3.3 mmol/L (3.5-5.1)
[2024-07-07 13:13] LABS: Calcium 12.1 mg/dL (8.7-10.4)
[2024-07-07 13:15] LABS: BUN/Creatinine Ratio 16.3 (10.0-20.0); Glucose 102 mg/dL (74-106)
[2024-07-07 13:19] LABS: Blood Urea Nitrogen 24 mg/dL (9-23)
[2024-07-07] MEDS: SPIRONOLACTONE 25 MG TAB PO ONE (14:00)
[2024-07-07] MEDS: ALPRAZolam 0.25 MG TAB PO PRN (14:00)
[2024-07-07] MEDS ORDERED: AUG875T PO (15:44)
[2024-07-07] MEDS ORDERED: CARV6.2517 PO (15:44)
[2024-07-07] MEDS ORDERED: AML5T PO (15:44)
[2024-07-07] MEDS ORDERED: SPIR25TA8 PO (15:44)
--- NOTE | 2024-07-07 15:44 | DVHDSRES ---
Discharge Summary Date of Admission Resident Creating Document: MACARIO MORGAN RESIDENT Jul 03, 2024 at 21:48 Date of Discharge: Jul 07, 2024 Admitting Diagnosis Asymptomatic hypercalcemia Possible acute appendicitis Wounds: No wound was present Labs/Diagnostic Data: Laboratory Results Test 07/07/24 10:20 07/07/24 05:32 07/06/24 14:00 07/06/24 05:21 Sodium Level 141 mmol/L (136-145) Potassium Level 3.3 mmol/L (3.5-5.1) Chloride Level 103 mmol/L (98-107) Carbon Dioxide Level 30 mmol/L (20-31) Anion Gap 8 (5-15) Blood Urea Nitrogen 24 mg/dL (9-23) Creatinine 1.47 mg/dL (0.700-1.30) Glomerular Filtration Rate Calc 50 mL/min (>90) BUN/Creatinine Ratio 16.3 (10.0-20.0) Serum Glucose 102 mg/dL (74-106) Calcium Level 12.1 mg/dL (8.7-10.4) White Blood Count 7.9 10^3/uL (4.4-10.8) Red Blood Count 3.73 10^6/uL (4.5-5.90) Hemoglobin 11.0 g/dL (13.5-17.5) Hematocrit 31.8 % (41.0-53.0) Mean Corpuscular Volume 85.2 fL (80.0-100.0) Mean Corpuscular Hemoglobin 29.5 pg (28.0-32.0) Mean Corpuscular Hemoglobin Concent 34.6 g/dL (32.0-36.0) Red Cell Distribution Width 15.2 % (11.8-14.3) Platelet Count 269 10^3/uL (140-450) Mean Platelet Volume 7.1 fL (6.9-10.8) Neutrophils (%) (Auto) 71.1 % (37.0-80.0) Lymphocytes (%) (Auto) 12.5 % (10.0-50.0) Monocytes (%) (Auto) 8.1 % (0.0-12.0) Eosinophils (%) (Auto) 7.2 % (0.0-7.0) Basophils (%) (Auto) 1.1 % (0.0-2.0) Neutrophils # (Auto) 5.6 10 ^3/uL (1.6-8.6) Lymphocytes # (Auto) 1.0 10 ^3/uL (0.4-5.4) Monocytes # (Auto) 0.6 10 ^3/uL (0-1.3) Eosinophils # (Auto) 0.6 10 ^3/uL (0-0.8) Basophils # (Auto) 0.1 10 ^3/uL (0-0.2) Nucleated Red Blood Cells 0.2 % Lactate Dehydrogenase 140 U/L (120-246) Carcinoembryonic Antigen < 0.50 ng/mL (<=5.0) Test 07/04/24 05:02 07/03/24 22:04 07/03/24 16:08 07/03/24 15:28 Magnesium Level 2.4 mg/dL (1.6-2.6) Total Bilirubin 0.7 mg/dL (0.2-1.0) Aspartate Amino Transferase (AST) 26 U/L (13-40) Alanine Aminotransferase (ALT) 36 U/L (7-40) Alkaline Phosphatase 200 U/L (46-116) Total Protein 6.0 g/dL (5.7-8.2) Albumin 3.8 g/dL (3.2-4.8) Phosphorus Level 3.5 mg/dL (2.4-5.1) B-Type Natriuretic Peptide 35.27 pg/mL (0-100) Free Prostate Specific Antigen 0.57 ng/mL (N/A) Percent Free Prostate Specific Ag 27.1 % (.) Prostate Specific Antigen Total 2.1 ng/mL (0.0-4.0) Vitamin D 25-Hydroxy 121.4 ng/mL (30.0-100) Thyroid Stimulating Hormone (TSH) 2.39 uIU/mL (0.55-4.78) Parathyroid Hormone (Intact) 4.8 pg/mL (18.4-80.1) Prothrombin Time 10.7 sec (9.3-11.8) Prothrombin Time INR 1.01 (0.9-1.15) Activated Partial Thromboplast Time 24.3 SEC (24.5-34.5) Lactic Acid Level 1.7 mmol/L (0.4-2.0) Urine Color Dark-yellow (Yellow) Urine Clarity Clear (Clear) Urine pH 5.5 (5.0-9.0) Urine Specific [place] 1.011 (1.001-1.035) Urine Protein Negative (Negative) Urine Ketones Negative (Negative) Urine Blood Negative /uL (Negative) Urine Nitrite 1+ (Negative) Urine Bilirubin 1+ (Negative) Urine Urobilinogen 3 mg/dL (Negative) Urine Leukocyte Esterase Negative /uL (Negative) Urine RBC 4 /hpf (0 - 3) Urine Microscopic WBC 2 /HPF (0-3) Urine Squamous Epithelial Cells Few /hpf (<5) Urine Bacteria None seen /hpf (None Seen) Urine Glucose Normal mg/dL (Normal) Other Laboratory Tests 07/07/24 10:20 07/07/24 05:32 Brief Hx & Hospital Course: This is a 73-year-old male with past medical history of atrial fibrillation s/p ablation in 2018, CAD s/p PTCA x3 with stenting of left main, lad and circumflex, ulcerative colitis diagnosed in September 2023, bilateral pulmonary embolisms, Parkinson disease, systolic heart failure, asthma, hypertension, who came in due to abdominal pain that has been ongoing for the past 2 weeks. Per patient's , he has also been experiencing dysuria for the past 2 days along with some confusion and delusions/hallucinations. They called patient's PCP who prescribed Levaquin, patient took 1 dose of Levaquin yesterday on 07/01/2024. However, due to continued dysuria, confusion and worsening generalized weakness with inability to walk is what prompted this visit to the hospital. On admission patient was noted to have hypercalcemia of 15.2 and subsequent measurement became 13.9>13.2, PTH 4.8 and vitamin D 121.4. Hospital course: Initial CT abdomen pelvis without contrast: Mild fat stranding surrounding the appendix suggestive of acute appendicitis, there is no periappendiceal fluid collection or free air and Prostatomegaly . Surgery recommended conservative management and advised to full liquid diet and was treated with levofloxacin 500 mg p.o. daily and IV metronidazole 500 mg Q 8 hours. For hypercalcemia workup, nephrology recommended check calcitriol, IV bisphosphonate IV Lasix and ordered a PSA LDH, metanephrine free fraction plasma. CT abdomen pelvis with IV contrast enhanced did not mentioned anything about malignancy. Blood pressure was controlled with carvedilol to 12.5 mg b.i.d., losartan 100 mg daily, amlodipine 5 mg daily and recurrent hypo kalemia during the hospital stay was was supplemented with both IV and oral potassium. recurrent hypokalemia we ordered serum aldosterone and aldosterone renin ratio and treated the patient with a spironolactone 25 mg p.o. daily. LDH and CEA were normal and pending results PSA, metanephrine free fraction plasma, serum aldosterone, aldosterone /renin ratio. Today calcium was 12.1 and potassium was 3.3 which was replaced with 50 mEq oral potassium. Today morning patient's blood pressure is stable and discharge plan was discussed with the and all questions were answered. Patient is being discharged to home and advised continue home medication and also advised to check BNP in next Saturday and also schedule appointment with PCP in 1 week, nephrology in 1-2 weeks and also outpatient Oncology for workup of malignancy. Discharge diagnosis: Asymptomatic subacute/chronic hypercalcemia likely due to hypervitaminosis vs. granulomatous disease Possible malignancy Possible acute uncomplicated appendicitis History of ulcerative colitis, currently not on any treatment Coronary artery disease s/p PTCA x3 Hypertension heart disease Hypokalemia IDALIA on CKD likely secondary to hemodynamically mediated/VMN History of Parkinson's disease Discharge Plan: Disposition : Home Medications: Augmentin 875 mg p.o. b.i.d. for 3 days, aspirin 81 mg daily, carvedilol 12.5 mg b.i.d, amlodipine 5 mg daily, spironolactone 25 mg daily, potassium chloride 20 meq daily, Xanax 0.5 mg b.i.d. and continue home medications. Follow up : PCP in 1 week with [facility] Outpatient Nephrology 1 to 2 week Outpatient Oncology 1 to 2 week Outpatient Surgery 1 to 2 week Diet : Full liquid diet for 1 week. Consults/Reason for consult Nephrology , surgery and oncology were consulted. Operations or Procedures Exam: CT CT CHEST/AB/PL W CON- IV ONLY History: malignancy COMPARISON: None Technique: Multidetector spiral CT of the abdomen and pelvis was performed from lung bases to pubic symphysis. Intravenous contrast was administered during this examination. Portal venous imaging was obtained. Axial, coronal and sagittal multiplanar reformats were performed by the technologist on a separate workstation. Radiation Dose : 1. Abdomen/Pelvis: CTDIvol 11 mGy, DLP 748.01 mGy*cm. CONTRAST: Type of contrast: Omnipaque 300 Contrast injected: 100 ml Contrast ingested:0 ml Findings: Lung Bases: No acute or significant lung base finding. Normal heart size. No pleural or pericardial effusion. Coronary artery calcification. Liver: The liver is normal in size. No focal lesions. Normal hepatic vascular enhancement. Multiple small liver cysts. Gallbladder and biliary Tree: Patient status post cholecystectomy. Spleen: Unremarkable Pancreas: The pancreas is normal in appearance without focal lesions or abnormal enhancement. Adrenal Glands: Unremarkable Kidneys: No hydronephrosis. Bladder: Unremarkable Bowel: Very minimal fat stranding adjacent to the appendix, not simply change from the prior study. No diverticulitis. Ascites: Absent Lymphadenopathy: No mesenteric, retroperitoneal or periportal lymphadenopathy. Abdominal wall and Mesentery: Unremarkable. Vasculature: The visualized abdominal aorta is normal in size and caliber. Abdominal and pelvic vessels demonstrate normal enhancement. Mild ectasis of the ascending aortia. No pulmonary emboli. Pelvic Organs: Moderate enlargement of the prostate. Musculoskeletal: Grade 1 spondylolisthesis of L5 on S1. Bilateral pars defects. Moderate lumbar spondylosis. IMPRESSION: 1. No interval change in the minimal fat stranding surrounding the appendix. No abscess. 2. No significant change compared to the prior study. ULTRASOUND RENAL CLINICAL INDICATION: Renal artery stenosis TECHNIQUE: Real-time sonographic, duplex, and color Doppler images of the kidneys were obtained. FINDINGS: The right kidney measures 12 cm and is normal in size. The right renal echogenicity, contour and cortical thickness are within normal limits. No hydronephrosis, large masses or perinephric fluid is seen. The left kidney measures 12 cm and is normal in size. The left renal echogenicity, contour, and cortical thickness are within normal limits. no hydronephrosis, large masses or perinephric fluid is seen. Right renal resistive index measures 0.8. Renal PSV/ aorta PSV ratio equals 1.3. Left renal resistive index measures 0.74. Left renal PSV /aorta PSV ratio equals 0.7. IMPRESSION: Mildly elevated right renal resistive index. However consider MRA renal artery protocol to evaluate the right renal artery. Condition at Discharge: Guarded Final Diagnosis/Problems List Asymptomatic subacute/chronic hypercalcemia likely due to hypervitaminosis vs. granulomatous disease Possible malignancy Possible acute uncomplicated appendicitis History of ulcerative colitis, currently not on any treatment Coronary artery disease s/p PTCA x3 Hypertension heart disease Hypokalemia IDALIA on CKD likely secondary to hemodynamically mediated/VMN History of Parkinson's disease Discharge Disposition: Home Discharge Instruct/Medications Diet: Cardiac 2g Na,low cholest Activity: No Restrictions, As Tolerated Follow Up/Referral: Follow up with PCP in 1 week and advice to check BMP in next saturday Follow up outpatient oncology for workup of malignancy in 1 to 2 weeks Follow up with outpatient nephrology in 1 to 2 weeks Medications: As per EMR Discharge Statement: "Patient was advised to return to the ER or call 911 if any headaches, dizziness, shortness of breath, chest pain, abdominal pain, bleeding, fevers, or worsening of medical condition. Patient was counseled about treatment plan, medications, possible side effects, patientverbalized understanding. All questions were answered to the best of my ability. This discharge took greater then 30 minutes in planning, reviewing documentation, counseling the patient, and discussing with other team members." ASSESSMENT ASSESSMENT Assessment Asymptomatic subacute/chronic hypercalcemia likely due to hypervitaminosis vs. granulomatous disease Possible malignancy Possible acute uncomplicated appendicitis History of ulcerative colitis, currently not on any treatment Coronary artery disease s/p PTCA x3 Hypertension heart disease Hypokalemia IDALIA on CKD likely secondary to hemodynamically mediated/VMN History of Parkinson's disease MACARIO MORGAN RESIDENT Jul 07, 2024 15:44
[2024-07-07] MEDS ORDERED: POTA-36 PO ×2 (16:57)
[2024-07-07] MEDS ORDERED: ALPR0.5T PO (16:59)
[2024-07-07 17:00] VITALS: BP 137/68; PULSE 73; RESP 19; TEMP 98.9; O2SAT 96
[2024-07-07] MEDS ORDERED: ASPI1TAB20 PO (17:02)
[2024-07-07 19:16] LABS: Alanine Aminotransferase 20 U/L (7-40); Albumin 3.4 g/dL (3.2-4.8); Anion Gap 8 (5-15); Aspartate Aminotransferase 19 U/L (13-40); Bilirubin, Total 0.6 mg/dL (0.2-1.0); Carbon Dioxide 30 mmol/L (20-31); Chloride 102 mmol/L (98-107); Glucose 100 mg/dL (74-106); Potassium 3.9 mmol/L (3.5-5.1); Sodium 140 mmol/L (136-145)
[2024-07-07 19:22] LABS: Alkaline Phosphatase 158 U/L (46-116); Blood Urea Nitrogen 26 mg/dL (9-23); Calcium 11.9 mg/dL (8.7-10.4); Total Protein 5.3 g/dL (5.7-8.2)
[2024-07-08] MEDS ORDERED: SPIRONOLACTONE 25 MG TAB PO SCH (10:00)
== END 2024-07-07 20:21 | disposition home or self-care (01) | DRG 640 ==
LOC: EDBD 14:58 → ER 14:58 → OVERFLOW 21:48 → CENTRAL 23:56 → TELE-CENTR 07-04 02:31
PROVIDERS: ADMIT Student in an Organized Health Care Education/Training Program; ATTEND Student in an Organized Health Care Education/Training Program
DX: E83.52 Hypercalcemia (principal); N17.0 Acute kidney failure with tubular necrosis; K35.80 Unspecified acute appendicitis; I50.32 Chronic diastolic (congestive) heart failure; I13.2 Hypertensive heart and chronic kidney disease with heart failure and with stage 5 chronic kidney disease, or end stage renal disease; E87.6 Hypokalemia; I48.91 Unspecified atrial fibrillation; I25.10 Atherosclerotic heart disease of native coronary artery without angina pectoris; E67.8 Other specified hyperalimentation; G20.A1 Parkinson's disease without dyskinesia, without mention of fluctuations; Z90.49 Acquired absence of other specified parts of digestive tract; Z95.5 Presence of coronary angioplasty implant and graft; Z83.3 Family history of diabetes mellitus; Z82.49 Family history of ischemic heart disease and other diseases of the circulatory system
CPT/HCPCS: 36415; 71045; 71260; 74176; 74177; 80048; 80053; 81001; 82040; 82088; 82306; 82310; 82378; 82652; 83605; 83615; 83735; 83835; 83880; 83970; 84100; 84132; 84154; 84155; 84244; 84443; 85025; 85610; 85730; 87040; 87086; 93306; 93975; 97110; 97116; 97163; G0378; J2470; J3480; J3490; Q9967

== ENCOUNTER → 2024-10-16 | Day surgery (SDC) | payer MEDICARE, BC ==
[2024-10-14 09:51] LABS: Basophils # (auto) 0.1 10 ^3/uL (0-0.2); Basophils % (auto) 1.6 % (0.0-2.0); Eosinophils # (auto) 0.2 10 ^3/uL (0-0.8); Eosinophils % (auto) 3.5 % (0.0-7.0); Hemoglobin 10.9 g/dL (13.5-17.5); Lymphocytes % (auto) 20.4 % (10.0-50.0); Mean Corpuscular Hemoglobin 31.3 pg (28.0-32.0); Mean Corpuscular Hgb Conc. 33.9 g/dL (32.0-36.0); Mean Corpuscular Volume 92.2 fL (80.0-100.0); Monocytes # (auto) 0.3 10 ^3/uL (0-1.3); Monocytes % (auto) 6.5 % (0.0-12.0); Neutrophils # (auto) 3.5 10 ^3/uL (1.6-8.6); Nucleated Red Blood Cells % 0.1 %; Platelet Count (auto) 228 10^3/uL (140-450); Red Blood Cells 3.47 10^6/uL (4.5-5.90); Red Cell Distribution Width 15.7 % (11.8-14.3); White Blood Cell 5.1 10^3/uL (4.4-10.8)
[2024-10-14 10:08] LABS: INR 0.95 (0.9-1.15); Partial Thromboplastin Time 25.6 SEC (24.5-34.5); Prothrombin Time 10.1 sec (9.3-11.8)
[2024-10-14 10:32] LABS: Alanine Aminotransferase 25 U/L (7-40); Albumin 4.3 g/dL (3.2-4.8); Alkaline Phosphatase 110 U/L (46-116); Anion Gap 9 (5-15); Aspartate Aminotransferase 18 U/L (13-40); BUN/Creatinine Ratio 15.4 (10.0-20.0); Blood Urea Nitrogen 12 mg/dL (9-23); Calcium 10.1 mg/dL (8.7-10.4); Carbon Dioxide 28 mmol/L (20-31); Chloride 106 mmol/L (98-107); Glucose 96 mg/dL (74-106); Potassium 3.9 mmol/L (3.5-5.1); Sodium 143 mmol/L (136-145); Total Protein 6.8 g/dL (5.7-8.2)
[2024-10-14 10:33] LABS: Bilirubin, Total 0.5 mg/dL (0.2-1.0)
[~2024-10-16] VITALS: Ht 175.3 cm; Wt 70.3 kg
[~2024-10-16] MED LIST changes: +ALPR0.5T PO; +AML5T PO; -APIX5TAB PO; +ASPI1TAB20 PO; +CARV6.2517 PO; +DOCU-96 PO; +DexAMETHasone SOD PHOS 10MG/1ML VIAL INJ ONE; -METO-289 PO; +MIDAZOLAM HCL 2MG/2ML 2ml VIAL (1mg/ml) ONE; +POTA-36 PO; +PROPOFOL 10 MG/ML 20 ML IV ONE; +SPIR25TA8 PO; +TICA90TA PO; +[UNRECOGNIZED DRUG - CODE] PO; -[UNRECOGNIZED DRUG - CODE] PO; +fentaNYL CITRATE 100 MCG/2 ML VL ONE
[2024-10-16 13:20] VITALS: TEMP 97.9
[2024-10-16 13:21] VITALS: PULSE 70; RESP 12; O2SAT 97
--- NOTE | 2024-10-16 13:27 | DVHOP2 ---
Operative Report DATE OF OPERATION: 10/16/24 PROCEDURE: Colonoscopy with cold biopsy polypectomy. PREOPERATIVE INDICATION: The patient is a 74 -year-old male undergoing colonoscopy for colon cancer screening with a history of colitis and anemia POSTOPERATIVE DIAGNOSES: 1. 2 mm benign-appearing descending colon polyp was seen and removed by cold biopsy polypectomy completely 2. There was a 1-2 mm benign-appearing sigmoid polyp that was seen and removed by cold biopsy forceps 3. Mild sigmoid muscular hypertrophy but no clear-cut openings of diverticular disease were noted 4. Trace internal hemorrhoids otherwise normal examination up to the cecum and terminal ileum PROCEDURE PERFORMED BY: Jesrey Alexandre M.D. SCOPE: Olympus videocolonoscope. ASA CLASS: 3. PREOPERATIVE MEDICATIONS: Dr. Mely Mckay PROCEDURE IN DETAIL: After obtaining an informed consent, the patient was placed on left lateral decubitus position. He was then sedated with the above medications. A rectal examination was performed that was normal. The colonoscope was then passed through the anus into the rectosigmoid and through the descending, transverse, and ascending colon up to the cecum with visualization of the appendiceal orifice, base of the cecum and the ileocecal valve. The colonoscope was then withdrawn. The distal 5 cm of the terminal ileum were normal Patient had a 2 mm benign-appearing descending colon polyp at about 45 cm above the anal verge This was removed by cold biopsy forceps completely. Patient had another 2 mm benign-appearing sigmoid polyp with a about 25 cm above the anal verge This was removed completely via cold biopsy forceps. On retroflexion he had trace internal hemorrhoids. There was mild sigmoid muscular hypertrophy but no clear-cut diverticular openings noted and no evidence of colitis The patient tolerated the procedure well without difficulty. WITHDRAWAL TIME: 6 minutes QUALITY OF THE PREP: Reese Bowel Prep score: 9. COMPLICATIONS : None SPECIMENS: Descending colon polyp Sigmoid polyp DISPOSITION: Stable D/C to home PLAN: 1. Repeat colonoscopy base on biopsy result likely in 3-5 years 2. Resume GI soft diet advance as tolerated 3. Increase fluid and fiber intake 4. Outpatient follow up with me in 4-6 weeks to review results and discuss further management JERSEY ALEXANDRE MD October 16, 2024 13:27
[2024-10-16 13:45] VITALS: BP 128/64; PULSE 75; RESP 12; O2SAT 97
== END | disposition home or self-care (01) ==
LOC: GI 09:59
PROVIDERS: ATTEND Internal Medicine Gastroenterology
DX: R93.5 Abnormal findings on diagnostic imaging of other abdominal regions, including retroperitoneum (principal); D12.4 Benign neoplasm of descending colon; K63.5 Polyp of colon; K59.39 Other megacolon; I10 Essential (primary) hypertension; I48.91 Unspecified atrial fibrillation; I25.10 Atherosclerotic heart disease of native coronary artery without angina pectoris; G20.A1 Parkinson's disease without dyskinesia, without mention of fluctuations; Z79.899 Other long term (current) drug therapy; Z86.2 Personal history of diseases of the blood and blood-forming organs and certain disorders involving the immune mechanism; Z88.0 Allergy status to penicillin; Z88.8 Allergy status to other drugs, medicaments and biological substances
CPT/HCPCS: 36415; 45380; 80053; 83540; 83550; 85025; 85610; 85730; 88305; J1100; J2250; J2704; J3010; J7030

== ENCOUNTER → 2025-01-29 | Day surgery (SDC) | payer MEDICARE, BC ==
[2025-01-28 09:43] LABS: Urine Protein, UAD Negative (Negative)
[2025-01-28 10:06] LABS: INR 0.96 (0.9-1.15); Partial Thromboplastin Time 26.6 SEC (24.5-34.5); Prothrombin Time 10.2 sec (9.3-11.8)
[2025-01-28 10:29] LABS: Hematocrit 40.1 % (41.0-53.0); Hemoglobin 13.6 g/dL (13.5-17.5); Mean Corpuscular Hemoglobin 30.7 pg (28.0-32.0); Mean Corpuscular Volume 90.3 fL (80.0-100.0); Nucleated Red Blood Cells % 0.1 %
[2025-01-28 10:37] LABS: Alanine Aminotransferase 20 U/L (7-40); Alkaline Phosphatase 78 U/L (46-116); Anion Gap 8 (5-15); BUN/Creatinine Ratio 19.5 (10.0-20.0); Blood Urea Nitrogen 17 mg/dL (9-23); Calcium 9.7 mg/dL (8.7-10.4); Carbon Dioxide 29 mmol/L (20-31); Chloride 105 mmol/L (98-107); Glucose 90 mg/dL (74-106); Potassium 4.0 mmol/L (3.5-5.1); Sodium 142 mmol/L (136-145); Total Protein 7.1 g/dL (5.7-8.2)
[2025-01-28 10:38] LABS: Albumin 4.6 g/dL (3.2-4.8)
[2025-01-28 10:39] LABS: Bilirubin, Total 0.9 mg/dL (0.2-1.0)
[~2025-01-29] VITALS: Ht 175.3 cm; Wt 72.1 kg
[~2025-01-29] MED LIST changes: -ALPR0.5T PO; -AML5T PO; -ASPI1TAB20 PO; -COLE1TAB2 PO; +CYAN-17 PO; -DexAMETHasone SOD PHOS 10MG/1ML VIAL INJ ONE; +FERR28TA4 PO; +GLYCOPYRROLATE 0.2 MG/ML 1ML VIAL ONE; +LIDOCAINE 2% (LOCAL ANESTH.) PF 5ml SDV ONE; -LOSA-535 PO; +ONDANSETRON HCL 4 MG/2 ML VIAL ONE; -POTA-36 PO; -ROSU40TA81 PO; -SPIR25TA8 PO; +SUCR1TAB31 OR; -TICA90TA PO; +[UNRECOGNIZED DRUG - CODE] EX
[2025-01-29 08:53] VITALS: TEMP 97.3; O2SAT 99
--- NOTE | 2025-01-29 09:02 | DVHOP2 ---
Operative Report DATE OF OPERATION: 01/29/25 PROCEDURE: Upper Endoscopy with biopsy. PREOPERATIVE INDICATION: The patient is a 74 -year-old male undergoing endoscopy for re-evaluation of history of gastric ulcer POSTOPERATIVE DIAGNOSES: 1. Pre-pyloric area mild antral gastritis and scarring likely from previous peptic ulcer disease however there was no active ulceration and near-complete healing noted 2. 1-2 cm sliding-type hiatal hernia with short-segment extension of columnar epithelium into the distal esophagus for 1 cm from which biopsies were obtained 3. Otherwise normal examination up to the 2nd and 3rd part of the duodenum PROCEDURE PERFORMED BY: Jersey Alexandre GI NURSE: Nehal SCOPE: Olympus videoendoscope. ASA CLASS: 3. PREOPERATIVE MEDICATIONS: Mac sedation, Dr. Townsend PROCEDURE IN DETAIL: After obtaining an informed consent, the patient was placed on left lateral decubitus position. The patient was then sedated with the above medications. A bite block was placed between his teeth. The endoscope was then passed through the oropharynx, into the esophagus, and through the stomach and pylorus up to the second and third part of the duodenum. The endoscope was then withdrawn. The 2nd and 3rd part of the duodenum and the duodenal bulb were normal. There was good bile drainage. Duodenal biopsies were obtained The pre-pyloric area and antrum showed minimal gastritis with a couple of erosions. There was complete resolution of previous gastric ulcer with some residual scarring There was mild gastritis in the body of the stomach. On retroflexion the fundus cardia and angularis were normal. Gastric biopsies were obtained. The endoscope was then withdrawn into distal esophagus where he had a 1-2 cm sliding-type hiatal hernia with short-segment extension of columnar epithelium into the distal esophagus for 1 cm GE junction biopsies were obtained. The remaining distal and proximal esophagus and oropharynx were unremarkable The patient tolerated the procedure well without difficulty. COMPLICATIONS : None SPECIMENS: Duodenal biopsies Gastric biopsies GE junction biopsies DISPOSITION: Stable D/C to home PLAN: 1. Await for biopsy result 2. Will place pt on Protonix 40 mg bid 3. Carafate 1 g p.o. twice a day 4. DC aspirin NSAIDs smoking alcohol 5. Outpatient follow up with me in 4-6 weeks to review results and discuss further management JERSEY ALEXANDRE MD Jan 29, 2025 09:02
[2025-01-29 09:38] VITALS: BP 129/72; PULSE 63; RESP 12; O2SAT 97
== END | disposition home or self-care (01) ==
LOC: GI 07:22
PROVIDERS: ATTEND Internal Medicine Gastroenterology
DX: K21.00 Gastro-esophageal reflux disease with esophagitis, without bleeding (principal); K29.50 Unspecified chronic gastritis without bleeding; K25.9 Gastric ulcer, unspecified as acute or chronic, without hemorrhage or perforation; K44.9 Diaphragmatic hernia without obstruction or gangrene; Z87.11 Personal history of peptic ulcer disease; F17.200 Nicotine dependence, unspecified, uncomplicated; I10 Essential (primary) hypertension; G20.C Parkinsonism, unspecified; Z90.49 Acquired absence of other specified parts of digestive tract; Z98.890 Other specified postprocedural states; Z88.0 Allergy status to penicillin; Z88.1 Allergy status to other antibiotic agents
CPT/HCPCS: 36415; 43239; 80053; 81001; 85025; 85610; 85730; 88305; 88342; J2003; J2250; J2405; J2704; J3010; J7030